=== PATIENT | male | born 1950 | race Caucasian/White ===

== ENCOUNTER → 2021-08-16 | Outpatient (CLI) | payer MEDICARE ==
--- NOTE | 2021-08-16 15:47 | XR ---
EXAMINATION TYPE: XR chest 2V DATE OF EXAM: 08/16/2021 COMPARISON: NONE HISTORY: Cough TECHNIQUE: Frontal and lateral views of the chest are obtained. FINDINGS: There is no pleural effusion, or pneumothorax seen. Right hilum appears asymmetrically pro minent. Patient is rotated. The cardiac silhouette size is within normal limits. Prominent lung volu me with increased retrosternal airspace disease, flattening the hemidiaphragms is consistent with und erlying COPD. The osseous structures are intact. IMPRESSION: Findings may be indicative of a right hilar mass, correlate for COPD. Recommend chest CT .
== END | disposition home or self-care (01) ==
LOC: RADXRMAIN 14:07
PROVIDERS: ATTEND Internal Medicine
DX: R91.8 Other nonspecific abnormal finding of lung field (principal)
CPT/HCPCS: 71046

== ENCOUNTER 2021-08-22 19:08 | Inpatient (IN) | payer MEDICARE ==
[2021-08-22] MEDS ORDERED: ASPIRIN 81 MG PO STA (19:31)
[2021-08-22] MEDS ORDERED: SODIUM CHLORIDE 0.9% 1,000 ML IV STA (19:31)
--- NOTE | 2021-08-22 19:41 | ED ---
General Adult HPI - General Chief complaint: Chest Pain Stated complaint: Chest Pain Time Seen by Provider: 08/22/21 19:15 Source: patient, RN notes reviewed, old records reviewed Mode of arrival: wheelchair - History of Present Illness Initial comments: This is a 71-year-old male who presents emergency Department complaining of chest pain. Patient states she's also mildly short of breath per patient states over the last weeks days he's been feeling weak and coughing quite a bit. Patient states symptoms started 4 weeks ago. Patient states he did get a COVID vaccine 2 but did not get the booster. Patient denies any fever. Patient denies any abdominal pain patient denies nausea vomiting diarrhea. Patient denies lightheadedness or dizziness. Patient denies any lightheadedness dizziness or near syncopal episode. Patient denies any swelling to the legs or calf tenderness. Patient denies any recent trips or travel. Patient states he is a smoker. Patient states he was recently told that he had an abnormality on his chest x-ray. - Related Data Home Medications Medication Instructions Recorded Confirmed Cefuroxime Axetil [Ceftin] 500 mg PO BID 08/22/21 08/22/21 Ergocalciferol [Vitamin D2 (1250 1,250 mcg PO ZEE 08/22/21 08/22/21 Mcg = 20585 Iu)] Allergies Allergy/AdvReac Type Severity Reaction Status Date / Time No Known Allergies Allergy Verified 08/22/21 20:08 Review of Systems ROS Statement: Those systems with pertinent positive or pertinent negative responses have been documented in the HPI. ROS Other: All systems not noted in ROS Statement are negative. Past Medical History Past Medical History: Myocardial Infarction ([place]) History of Any Multi-Drug Resistant Organisms: None Reported Past Surgical History: No Surgical Hx Reported Past Psychological History: No Psychological Hx Reported Smoking Status: Current every day smoker Past Alcohol Use History: Daily Past Drug Use History: None Reported General Exam - General Exam Comments Initial Comments: GENERAL: Patient is well-developed and well-nourished. Patient is nontoxic and well-hyd rated and is in mild distress. ENT: Neck is soft and supple. No significant lymphadenopathy is noted. Oropharynx is clear. Moist mucous membranes. Neck has full range of motion without eliciting any pain. EYES: The sclera were anicteric and conjunctiva were pink and moist. Extraocular movements were intact and pupils were equal round and reactive to light. Eyelids were unremarkable. PULMONARY: Unlabored respirations. Good breath sounds bilaterally. No audible rales rhonchi or wheezing was noted. CARDIOVASCULAR: Patient is tachycardic at about 130 beats a minute. ABDOMEN: Soft and nontender with normal bowel sounds. SKIN: Skin is clear with no lesions or rashes and otherwise unremarkable. NEUROLOGIC: Patient is alert and oriented x3. Cranial nerves II through XII are grossly intact. Motor and sensory are also intact. Normal speech, volume and content. Symmetrical smile. MUSCULOSKELETAL: Normal extremities with adequate strength and full range of motion. No lower extremity swelling or edema. No calf tenderness. LYMPHATICS: No significant lymphadenopathy is noted PSYCHIATRIC: Normal psychiatric evaluation. Course Vital Signs 08/22/21 08/22/21 08/22/21 19:14 19:35 19:44 Temperature 97.6 F Pulse Rate 130 H 128 H Respiratory 23 30 H Rate Blood Pressure 105/68 99/80 O2 Sat by Pulse 97 93 L Oximetry 08/22/21 08/22/21 20:00 20:30 Temperature Pulse Rate 123 H 117 H Respiratory 30 H 28 H Rate Blood Pressure 106/81 124/85 O2 Sat by Pulse 95 98 Oximetry Medical Decision Making - Medical Decision Making EKG shows sinus tachycardia at 130 bpm QRS is 105 Q-T intervals 3-5 QTC is 432. Patient has an occasional PAC. CT chest shows multiple PEs. I started the patient heparin. I spoke with Dr. Brunner he agreed to admit the patient admitted the patient wrote admitting orders. I spoke with Dr. Dockery he agreed to medical management the patient in the ICU. I also started patient on antibiotics because it look like there might be upper lobe pneumonia. I spoke with Dr. Dover and he agreed with the current course of treatment. - Lab Data Result diagrams: 08/22/21 19:45 08/22/21 19:45 Lab Results 08/22/21 08/22/21 08/22/21 Range/Units 19:45 19:45 19:45 WBC 19.9 H (3.8-10.6) k/uL RBC 4.63 (4.30-5.90) m/uL Hgb 15.2 (13.0-17.5) gm/dL Hct 46.6 (39.0-53.0) % MCV 100.6 H (80.0-100.0) fL MCH 32.8 (25.0-35.0) pg MCHC 32.6 (31.0-37.0) g/dL RDW 13.2 (11.5-15.5) % Plt Count 207 (150-450) k/uL MPV 8.3 Neutrophils % 89 % Lymphocytes % 6 % Monocytes % 4 % Eosinophils % 0 % Basophils % 0 % Neutrophils # 17.6 H (1.3-7.7) k/uL Lymphocytes # 1.2 (1.0-4.8) k/uL Monocytes # 0.8 (0-1.0) k/uL Eosinophils # 0.0 (0-0.7) k/uL Basophils # 0.1 (0-0.2) k/uL PT 11.3 (9.0-12.0) sec INR 1.1 (<1.2) APTT 25.1 (22.0-30.0) sec D-Dimer 32.01 H (<0.60) mg/L FEU Sodium 136 L (137-145) mmol/L Potassium 4.1 (3.5-5.1) mmol/L Chloride 102 (98-107) mmol/L Carbon Dioxide 13 L (22-30) mmol/L Anion Gap 21 mmol/L BUN 16 (9-20) mg/dL Creatinine 1.38 H (0.66-1.25) mg/dL Est GFR (CKD-EPI)AfAm 59 (>60 ml/min/1.73 sqM) Est GFR (CKD-EPI)NonAf 51 (>60 ml/min/1.73 sqM) Glucose 302 H (74-99) mg/dL Plasma Lactic Acid Feliciano (0.7-2.0) mmol/L Calcium 9.0 (8.4-10.2) mg/dL Magnesium 1.8 (1.6-2.3) mg/dL Total Bilirubin 1.7 H (0.2-1.3) mg/dL AST 41 (17-59) U/L ALT 28 (4-49) U/L Alkaline Phosphatase 58 (38-126) U/L Troponin I (0.000-0.034) ng/mL Total Protein 7.5 (6.3-8.2) g/dL Albumin 4.5 (3.5-5.0) g/dL Lipase 52 (23-300) U/L Coronavirus (PCR) (Not Detectd) 08/22/21 08/22/21 08/22/21 Range/Units 19:45 19:45 19:45 WBC (3.8-10.6) k/uL RBC (4.30-5.90) m/uL Hgb (13.0-17.5) gm/dL Hct (39.0-53.0) % MCV (80.0-100.0) fL MCH (25.0-35.0) pg MCHC (31.0-37.0) g/dL RDW (11.5-15.5) % Plt Count (150-450) k/uL MPV Neutrophils % % Lymphocytes % % Monocytes % % Eosinophils % % Basophils % % Neutrophils # (1.3-7.7) k/uL Lymphocytes # (1.0-4.8) k/uL Monocytes # (0-1.0) k/uL Eosinophils # (0-0.7) k/uL Basophils # (0-0.2) k/uL PT (9.0-12.0) sec INR (<1.2) APTT (22.0-30.0) sec D-Dimer (<0.60) mg/L FEU Sodium (137-145) mmol/L Potassium (3.5-5.1) mmol/L Chloride (98-107) mmol/L Carbon Dioxide (22-30) mmol/L Anion Gap mmol/L BUN (9-20) mg/dL Creatinine (0.66-1.25) mg/dL Est GFR (CKD-EPI)AfAm (>60 ml/min/1.73 sqM) Est GFR (CKD-EPI)NonAf (>60 ml/min/1.73 sqM) Glucose (74-99) mg/dL Plasma Lactic Acid Feliciano 9.2 H* (0.7-2.0) mmol/L Calcium (8.4-10.2) mg/dL Magnesium (1.6-2.3) mg/dL Total Bilirubin (0.2-1.3) mg/dL AST (17-59) U/L ALT (4-49) U/L Alkaline Phosphatase (38-126) U/L Troponin I 0.419 H* (0.000-0.034) ng/mL Total Protein (6.3-8.2) g/dL Albumin (3.5-5.0) g/dL Lipase (23-300) U/L Coronavirus (PCR) Not Detected (Not Detectd) Critical Care Time Critical Care Time: Yes Total Critical Care Time: 35 Disposition Clinical Impression: Pulmonary embolism Disposition: ADMITTED IP TO THIS [facility] Time of Disposition: 21:09
[2021-08-22 20:16] LABS: Basophils # (A) 0.1 k/uL (0-0.2); Basophils % (A) 0 %; Eosinophils % (A) 0 %; HCT 46.6 % (39.0-53.0); HGB 15.2 gm/dL (13.0-17.5); Lymphocytes # (A) 1.2 k/uL (1.0-4.8); Lymphocytes % (A) 6 %; MCH 32.8 pg (25.0-35.0); MCHC 32.6 g/dL (31.0-37.0); MCV 100.6 fL (80.0-100.0); Mean Platelet Volume 8.3; Monocytes # (A) 0.8 k/uL (0-1.0); Monocytes % (A) 4 %; Neutrophils # (A) 17.6 k/uL (1.3-7.7); Neutrophils % (A) 89 %; Platelet Count 207 k/uL (150-450); RBC 4.63 m/uL (4.30-5.90); RDW 13.2 % (11.5-15.5); WBC 19.9 k/uL (3.8-10.6)
[2021-08-22 20:17] LABS: Albumin 4.5 g/dL (3.5-5.0); Magnesium 1.8 mg/dL (1.6-2.3); Potassium 4.1 mmol/L (3.5-5.1); Total Bilirubin 1.7 mg/dL (0.2-1.3); Total Protein 7.5 g/dL (6.3-8.2)
[2021-08-22 20:23] LABS: INR 1.1 (<1.2); Partial Thromboplastin Time 25.1 sec (22.0-30.0); Prothrombin Time 11.3 sec (9.0-12.0)
--- NOTE | 2021-08-22 20:26 | XR ---
EXAMINATION TYPE: XR chest 2V DATE OF EXAM: 08/22/2021 7:54 PM COMPARISON:Chest radiographs from 08/16/2021 TECHNIQUE: XR chest 2V Frontal and lateral views of the chest. CLINICAL INDICATION:Male, 71 years old with history of Chest Pain; FINDINGS: Lungs/Pleura: There is no evidence of pleural effusion, focal consolidation, or pneumothorax. Pulmonary vascularity: Unremarkable. Heart/mediastinum: Cardiomediastinal silhouette is unremarkable. Musculoskeletal: No acute osseous pathology. IMPRESSION: No acute cardiopulmonary disease/process or significant change from prior..
[2021-08-22] MEDS ORDERED: cefTRIAXone IN SWFI 1,000 MG/10 ML SYRINGE IVP STA (20:36)
[2021-08-22] MEDS ORDERED: SODIUM CHLORIDE 0.9% 1,000 ML IV ONE (20:36)
[2021-08-22] MEDS ORDERED: SODIUM CHLORIDE 0.9% 500 ML 500 ML IV ONE (20:36)
[2021-08-22] MEDS ORDERED: HEPARIN SODIUM 1,000 UN/ML (10ML VL) IV ONE (21:02)
[2021-08-22] MEDS ORDERED: NALOXONE 0.4 MG/ML 1 ML VIAL IV PRN (21:11)
[2021-08-22] MEDS: HEPARIN SOD,PORK IN 0.45% NACL 25,000 UNIT in 0.45% NACL 1 250ML.BAG IV SCH (21:22)
--- NOTE | 2021-08-22 21:26 | CT ---
EXAMINATION TYPE: CT chest angio for PE CT DLP: 234.4 mGycm, Automated exposure control for dose reduction was used. DATE OF EXAM: 08/22/2021 9:00 PM COMPARISON:Chest radiograph from same day. CLINICAL INDICATION:Male, 71 years old with history of Pulmonary embolism; SOB TECHNIQUE/CONTRAST: CTA scan of the thorax is performed with IV Contrast, patient injected with 80 mL of Isovue 370, pulm onary embolism protocol. MIP images are created and reviewed. FINDINGS: Pulmonary Artery: There is a filling defects within the pulmonary arterial vasculature including sagi ttal pulmonary embolus at the bifurcation of the pulmonary trunk. Additional filling defects with ext ension into the bilateral lobar, segmental and subsegmental branches. The pulmonary trunk is within n ormal limits measuring 27 mm. There is flattening of the interventricular septum. Lungs/Pleura: Centrilobular emphysema changes with some consolidation in the lung apices likely repre senting scarring. Wedge-shaped opacity within the right lower lobe could represent early pulmonary in farct. No evidence of pneumothorax or pleural effusion. Airway: Large airways are patent. Heart: Within normal limits for size. Vasculature: No evidence of aortic aneurysm. Reflux of contrast into the the inferior vena cava. Mediastinum: No gross evidence of adenopathy. Musculoskeletal: No acute osseous abnormalities Soft Tissues: Unremarkable. Lower neck: No significant findings. Upper Abdomen: No significant findings. Findings communicated to Dr. Atul Dye MD on 08/22/2021 9:[address] Gilson Aguirre. IMPRESSION: 1. Sagittal pulmonary embolus with extension to the bilateral segmental and subsegmental branches of all the lung lobes. There is flattening of the interventricular septum with reflux of contrast into t he IVC consistent with right heart strain correlate with troponin. 2. Wedge-shaped area within the right lower lobe is represent a pulmonary infarct enlarged. 3. Emphysema changes with suspected scarring within the lung apices.
[2021-08-23 08:10] LABS: Glucose,Whole Blood 93 mg/dL (75-99)
--- NOTE | 2021-08-23 08:34 | P.GSCN ---
History of Present Illness Consult date: 08/23/21 Reason for Consult: Pulmonary embolism History of present illness: This is a pleasant 71-year-old male with a past medical history of coronary artery disease, current every day smoker, presented to the emergency department yesterday with complaints of shortness of breath. Apparently the patient had been experiencing shortness of breath with cough, congestion and weakness for the last 1 month duration. He has been cold attested which has been negative in the past and currently. The patient had elevated d-dimer as well as troponins on admission. He had a CT angiogram of the chest that showed sagittal pulmonary embolism with extension to bilateral segmental and subsegmental branches of all the lung lobes, with right heart strain. Saturation has been 97 200% with 3 L nasal cannula. He states he does have shortness of breath at rest increased with exertion. He currently denies any cough, fever, or chills. Denies any chest pain. He has no previous history of DVT or pulmonary embolism. He has had no recent surgery, no transplant, has been more sedentary due to the above symptoms. He does report that he has a son with history of blood clots and believes he does have a clotting disorder. He is currently on IV heparin drip. Review of Systems A 14 point review of systems has been completed all pertinent positives and negatives as stated in the HPI. Past Medical History Past Medical History: Myocardial Infarction ([place]) History of Any Multi-Drug Resistant Organisms: None Reported Past Surgical History: No Surgical Hx Reported Past Psychological History: No Psychological Hx Reported Smoking Status: Current every day smoker Past Alcohol Use History: Daily Past Drug Use History: None Reported - Past Family History Father Additional Family Medical History / Comment(s): "Bad back" Mother Family Medical History: Cancer Medications and Allergies Home Medications Medication Instructions Recorded Confirmed Type Cefuroxime Axetil [Ceftin] 500 mg PO BID 08/22/21 08/22/21 History Ergocalciferol [Vitamin D2 (1250 1,250 mcg PO ZEE 08/22/21 08/22/21 History Mcg = 29130 Iu)] Allergies Allergy/AdvReac Type Severity Reaction Status Date / Time No Known Allergies Allergy Verified 08/22/21 20:08 Surgical - Exam Vital Signs Pulse Resp BP Pulse Ox 130 H 23 105/68 97 08/22/21 19:14 08/22/21 19:14 08/22/21 19:14 08/22/21 19:14 General appearance: The patient is alert, oriented, appears in no acute distress. HET: Head is normocephalic and atraumatic. Neck: Supple without lymphadenopathy. Trachea midline. No audible carotid bruit. Heart: S1 S2. Regular rate and rhythm. Lungs: Clear to auscultation bilaterally. Abdomen: Soft, nontender, nondistended. Extremities: Normal skin color and turgor. No cyanosis, rash, ulceration, clubbing, or edema. Radial pulses +2 bilaterally. Non-palpable dorsalis pedis pulse. Neurological: No focal deficits. Alert and oriented 3. Results - Labs 08/22/21 19:45 08/22/21 19:45 Abnormal Lab Results - Last 24 Hours (Table) 08/22/21 08/22/21 08/22/21 Range/Units 19:45 19:45 19:45 WBC 19.9 H (3.8-10.6) k/uL MCV 100.6 H (80.0-100.0) fL Neutrophils # 17.6 H (1.3-7.7) k/uL APTT (22.0-30.0) sec D-Dimer 32.01 H (<0.60) mg/L FEU Sodium 136 L (137-145) mmol/L Carbon Dioxide 13 L (22-30) mmol/L Creatinine 1.38 H (0.66-1.25) mg/dL Glucose 302 H (74-99) mg/dL Plasma Lactic Acid Feliciano (0.7-2.0) mmol/L Total Bilirubin 1.7 H (0.2-1.3) mg/dL Troponin I (0.000-0.034) ng/mL 08/22/21 08/22/21 08/22/21 Range/Units 19:45 19:45 22:43 WBC (3.8-10.6) k/uL MCV (80.0-100.0) fL Neutrophils # (1.3-7.7) k/uL APTT (22.0-30.0) sec D-Dimer (<0.60) mg/L FEU Sodium (137-145) mmol/L Carbon Dioxide (22-30) mmol/L Creatinine (0.66-1.25) mg/dL Glucose (74-99) mg/dL Plasma Lactic Acid Feliciano 9.2 H* 6.0 H* (0.7-2.0) mmol/L Total Bilirubin (0.2-1.3) mg/dL Troponin I 0.419 H* (0.000-0.034) ng/mL 08/23/21 08/23/21 08/23/21 Range/Units 02:00 03:56 05:08 WBC (3.8-10.6) k/uL MCV (80.0-100.0) fL Neutrophils # (1.3-7.7) k/uL APTT 106.2 H* (22.0-30.0) sec D-Dimer (<0.60) mg/L FEU Sodium (137-145) mmol/L Carbon Dioxide (22-30) mmol/L Creatinine (0.66-1.25) mg/dL Glucose (74-99) mg/dL Plasma Lactic Acid Feliciano 4.3 H* 2.3 H* (0.7-2.0) mmol/L Total Bilirubin (0.2-1.3) mg/dL Troponin I (0.000-0.034) ng/mL 08/23/21 Range/Units 05:14 WBC (3.8-10.6) k/uL MCV (80.0-100.0) fL Neutrophils # (1.3-7.7) k/uL APTT (22.0-30.0) sec D-Dimer (<0.60) mg/L FEU Sodium (137-145) mmol/L Carbon Dioxide (22-30) mmol/L Creatinine (0.66-1.25) mg/dL Glucose (74-99) mg/dL Plasma Lactic Acid Feliciano (0.7-2.0) mmol/L Total Bilirubin (0.2-1.3) mg/dL Troponin I 0.366 H* (0.000-0.034) ng/mL Diabetes panel 08/22/21 Range/Units 19:45 Sodium 136 L (137-145) mmol/L Potassium 4.1 (3.5-5.1) mmol/L Chloride 102 (98-107) mmol/L Carbon Dioxide 13 L (22-30) mmol/L BUN 16 (9-20) mg/dL Creatinine 1.38 H (0.66-1.25) mg/dL Glucose 302 H (74-99) mg/dL Calcium 9.0 (8.4-10.2) mg/dL AST 41 (17-59) U/L ALT 28 (4-49) U/L Alkaline Phosphatase 58 (38-126) U/L Total Protein 7.5 (6.3-8.2) g/dL Albumin 4.5 (3.5-5.0) g/dL Calcium panel 08/22/21 Range/Units 19:45 Calcium 9.0 (8.4-10.2) mg/dL Albumin 4.5 (3.5-5.0) g/dL Pituitary panel 08/22/21 Range/Units 19:45 Sodium 136 L (137-145) mmol/L Potassium 4.1 (3.5-5.1) mmol/L Chloride 102 (98-107) mmol/L Carbon Dioxide 13 L (22-30) mmol/L BUN 16 (9-20) mg/dL Creatinine 1.38 H (0.66-1.25) mg/dL Glucose 302 H (74-99) mg/dL Calcium 9.0 (8.4-10.2) mg/dL Adrenal panel 08/22/21 Range/Units 19:45 Sodium 136 L (137-145) mmol/L Potassium 4.1 (3.5-5.1) mmol/L Chloride 102 (98-107) mmol/L Carbon Dioxide 13 L (22-30) mmol/L BUN 16 (9-20) mg/dL Creatinine 1.38 H (0.66-1.25) mg/dL Glucose 302 H (74-99) mg/dL Calcium 9.0 (8.4-10.2) mg/dL Total Bilirubin 1.7 H (0.2-1.3) mg/dL AST 41 (17-59) U/L ALT 28 (4-49) U/L Alkaline Phosphatase 58 (38-126) U/L Total Protein 7.5 (6.3-8.2) g/dL Albumin 4.5 (3.5-5.0) g/dL - Imaging Comments: CT angiogram chest reports sagittal pulmonary embolism with extension to bilateral segmental and subsegmental branches of all the lung lobes. There is flattening of the interventricular septum with reflux of contrast into IVC consistent with right heart strain correlate with troponin. Wedge-shaped area within the right lower lobe is present a pulmonary infarct enlarged. Emphysema changes with suspected scarring within the lung apices. Venous Doppler study reports findings are suggestive of nonoccluding DVT bilateral lower extremity and the superficial femoral vein Assessment and Plan Assessment: 1. Bilateral pulmonary emboli with likely right heart strain 2. Elevated troponins 3. History of coronary artery disease 4. Current smoker Plan: 1. Continue IV heparin drip 2. Echocardiogram ordered 3. Venous duplex ordered 4. Keep nothing by mouth 5. Smoking cessation 6. Hematology consulted, patient's son has history of blood clots with possible clotting disorder 7. Patient is scheduled for [facility] today The impression and plan of care has been dictated as directed. Dr. Dover I performed a history and examination of this patient, discussed the same with the dictator. I agree with the dictator's note ,documented as a scribe. Any additional findings or plans will be noted.
--- NOTE | 2021-08-23 09:33 | US ---
EXAMINATION TYPE: US venous doppler duplex LE BI DATE OF EXAM: 08/23/2021 7:50 AM COMPARISON: CT CLINICAL HISTORY: PE, assess for DVT. SIDE PERFORMED: Bilateral TECHNIQUE: The lower extremity deep venous system is examined utilizing real time linear array sonog anny with graded compression, doppler sonography and color-flow sonography. VESSELS IMAGED: Common Femoral Vein Deep Femoral Vein Greater Saphenous Vein * Femoral Vein Popliteal Vein Small Saphenous Vein * Proximal Calf Veins (* superficial vessels) Right Leg: Non occluding DVT is noted upper Femoral Vein Valves and mid Femoral Vein on image # [id number] . Left Leg: Wall echoes noted at upper and mid Femoral Vein valves and may suggest non occluding DVT. IMPRESSION: 1. Findings are suggestive of nonoccluding DVT bilateral lower extremity superficial femoral vein.
--- NOTE | 2021-08-23 11:51 | P.CNPUL ---
History of Present Illness Consult date: 08/23/21 Requesting physician: Robel Brunner Reason for consult: pulmonary embolism Chief complaint: Shortness of breath History of present illness: This is a 71-year-old white male with history of coronary artery disease, previous stent placement, history of underlying COPD, tobacco dependence syndrome, strong family history of thromboembolic disease, patient presented to the hospital with one month history of shortness of breath, vague chest pain across the chest anteriorly. Patient was found to have elevated d-dimer, and abnormal CT angiogram of the chest showing large sagittal pulmonary embolism with extension to segmental and subsegmental branches bilaterally, and there was evidence of right heart strain. Echocardiogram is pending. Patient was admitted to the ICU, and he is being considered for EKOS thrombolytic therapy by vascular surgery. In the meantime the patient is on heparin, he is also on 3 L nasal cannula with O2 saturation of 95%. Patient is hemodynamically stable, blood pressure is 97/44. And does not seem to be in any distress during my evaluation. Venous Doppler of the legs showed nonocclusive DVT bilaterally Patient had no previous history of DVT, or ulnar embolism, however his son had deep vein thromboses and pulmonary embolism at age 39 and he was diagnosed as having factor V Leyden mutation Review of Systems Constitutional: Weakness, no fever, no chills, no weight loss. HEENT: Negative. Pulmonary: As noted in HPI. Cardiac: Negative. History of coronary artery disease and previous stents placement. GI: Negative. Genitourinary: Negative. Musko skeletal: Negative. Skin: Negative. Neurologic: Negative. Endocrine: Negative. Hematologic: Negative. Psychiatric: Negative. Past Medical History Past Medical History: Myocardial Infarction ([place]) Additional Past Medical History / Comment(s): R eye glaucoma, occasional low back pain. Last Myocardial Infarction Date:: 2004 History of Any Multi-Drug Resistant Organisms: None Reported Past Surgical History: No Surgical Hx Reported Additional Past Surgical History / Comment(s): 2004 cardiac cath/pt does not believe he had any intervention, colonoscopy/polyp removed/benign. Past Anesthesia/Blood Transfusion Reactions: Unable to Obtain Additional Past Anesthesia/Blood Transfusion Reaction / Comment(s): Pt has never had general anesthesia. Past Psychological History: No Psychological Hx Reported Smoking Status: Current every day smoker Past Alcohol Use History: Daily Past Drug Use History: None Reported - Past Family History Father Additional Family Medical History / Comment(s): "Bad back" Mother Family Medical History: Cancer Medications and Allergies Home Medications Medication Instructions Recorded Confirmed Type Cefuroxime Axetil [Ceftin] 500 mg PO BID 08/22/21 08/22/21 History Ergocalciferol [Vitamin D2 (1250 1,250 mcg PO ZEE 08/22/21 08/22/21 History Mcg = 94326 Iu)] Allergies Allergy/AdvReac Type Severity Reaction Status Date / Time No Known Allergies Allergy Verified 08/22/21 20:08 Physical Exam Vitals: Vital Signs Temp Pulse Resp BP Pulse Ox 08/23/21 11:33 23 08/23/21 11:00 104 H 23 98/73 98 08/23/21 10:30 102 H 13 98/73 97 08/23/21 10:00 103 H 25 H 97/74 08/23/21 09:30 106 H 20 97/74 95 08/23/21 09:00 98.0 F 110 H 19 92/75 95 08/23/21 08:30 108 H 24 92/75 95 08/23/21 08:00 96/72 08/23/21 07:30 107 H 20 94/77 98 08/23/21 07:00 105 H 10 L 105/77 100 08/23/21 06:30 106 H 26 H 83/68 100 08/23/21 06:00 101 H 14 87/71 100 08/23/21 05:00 104 H 14 87/59 99 08/23/21 04:00 106 H 27 H 86/69 100 08/23/21 03:30 103 H 18 86/69 100 08/23/21 03:00 101 H 16 96/73 100 08/23/21 02:30 107 H 21 96/73 99 08/23/21 02:00 113 H 19 89/68 98 08/23/21 01:30 98 22 87/67 100 08/23/21 01:00 101 H 14 95/70 100 08/23/21 00:30 105 H 20 90/60 99 08/23/21 00:00 105 H 24 92/67 100 08/22/21 23:30 106 H 25 H 104/78 97 08/22/21 23:00 106 H 16 115/73 97 08/22/21 22:30 110 H 21 133/88 99 08/22/21 22:00 111 H 26 H 121/91 99 08/22/21 21:30 113 H 25 H 119/77 100 08/22/21 21:00 112 H 22 124/85 94 L 08/22/21 20:50 124/85 08/22/21 20:30 117 H 28 H 124/85 98 08/22/21 20:00 123 H 30 H 106/81 95 08/22/21 19:44 128 H 30 H 99/80 93 L 08/22/21 19:35 97.6 F 08/22/21 19:14 130 H 23 105/68 97 Intake and Output 08/22/21 08/23/21 08/23/21 22:59 06:59 14:59 Intake Total 83.674 0 Output Total 0 Balance 83.674 0 Intake: Intake, IV Titration 83.674 Amount Heparin Sod,Pork in 0.45% 83.674 NaCl 25,000 unit In 0.45 % NaCl 1 250ml.bag @ 18 UNITS/KG/HR 10.614 mls/hr IV .[id number] [facility] Rx#: [id number] Oral 0 Output: Urine 0 Other: Voiding Method Urinal # Voids 1 Weight 58.967 kg 58.967 kg Physical Exam: Revealed 71-year-old white male in no distress. Head: Atraumatic, normocephalic. HEENT:[Neck is supple.] [No neck masses.] [No thyromegaly.] [No JVD.] Chest: [Clear throughout, no crackles, no rhonchi, no wheezes.] Cardiac Exam: [Normal S1 and S2, no S3 gallop, no murmur.] Abdomen: [Soft, nontender, no megaly, no rebound, no guarding, normal bowel sounds.] Extremities: [No clubbing, no edema, no cyanosis.] Neurological Exam: [No focal neurologic deficit.] Alert oriented 3 focal deficits. Psychiatric: Normal mood affect and normal mental status examination. Skin: No rashes. Musculoskeletal: No deformities and no limitation in range of motion. Results - Laboratory Findings CBC and BMP: 08/22/21 19:45 08/22/21 19:45 PT/INR, D-dimer PT 11.3 sec (9.0-12.0) 08/22/21 19:45 INR 1.1 (<1.2) 08/22/21 19:45 D-Dimer 32.01 mg/L FEU (<0.60) H 08/22/21 19:45 Abnormal lab findings: Abnormal Labs 08/22/21 08/22/21 08/22/21 19:45 19:45 19:45 WBC 19.9 H MCV 100.6 H Neutrophils # 17.6 H APTT D-Dimer 32.01 H Sodium 136 L Carbon Dioxide 13 L Creatinine 1.38 H Glucose 302 H Plasma Lactic Acid Feliciano Total Bilirubin 1.7 H Troponin I 08/22/21 08/22/21 08/22/21 19:45 19:45 22:43 WBC MCV Neutrophils # APTT D-Dimer Sodium Carbon Dioxide Creatinine Glucose Plasma Lactic Acid Feliciano 9.2 H* 6.0 H* Total Bilirubin Troponin I 0.419 H* 08/23/21 08/23/21 08/23/21 02:00 03:56 05:08 WBC MCV Neutrophils # APTT 106.2 H* D-Dimer Sodium Carbon Dioxide Creatinine Glucose Plasma Lactic Acid Feliciano 4.3 H* 2.3 H* Total Bilirubin Troponin I 08/23/21 08/23/21 08/23/21 05:14 08:38 08:38 WBC MCV Neutrophils # APTT D-Dimer Sodium Carbon Dioxide Creatinine Glucose Plasma Lactic Acid Feliciano 2.7 H* Total Bilirubin Troponin I 0.366 H* 0.292 H* - Diagnostic Findings CT scan - chest: image reviewed (Sagittal pulmonary embolism as noted in HPI. There is also evidence of right lower lobe infarction. 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 Resume home meds. Continue heparin for now. Discontinue Rocephin, clinical history is not suggestive of pneumonia. Continue to monitor in the ICU for the next 24 hours. We'll continue to follow. Time with Patient: Greater than 30
[2021-08-23 12:42] LABS: Basophils % (A) 0 %; Eosinophils % (A) 0 %; HCT 39.8 % (39.0-53.0); HGB 12.9 gm/dL (13.0-17.5); Hypochromasia Slight; Lymphocytes # (A) 1.2 k/uL (1.0-4.8); Lymphocytes % (A) 11 %; MCH 32.9 pg (25.0-35.0); MCHC 32.4 g/dL (31.0-37.0); MCV 101.7 fL (80.0-100.0); Macrocytosis Slight; Mean Platelet Volume 10.7; Monocytes # (A) 0.7 k/uL (0-1.0); Monocytes % (A) 6 %; Neutrophils # (A) 8.8 k/uL (1.3-7.7); Neutrophils % (A) 81 %; Platelet Count 156 k/uL (150-450); RBC 3.92 m/uL (4.30-5.90); RDW 13.3 % (11.5-15.5)
[2021-08-23 12:58] LABS: Albumin 3.6 g/dL (3.5-5.0); Calcium 8.2 mg/dL (8.4-10.2); Potassium 4.8 mmol/L (3.5-5.1); Total Bilirubin 0.7 mg/dL (0.2-1.3); Total Protein 6.4 g/dL (6.3-8.2)
--- NOTE | 2021-08-23 14:12 | P.CONS ---
History of Present Illness - Reason for Consult Consult date: 08/23/21 Hypercoagulable Requesting physician: Mariangel Angel - History of Present Illness Patient presents with shortness of breath. CT angiogram of the chest showing large sagittal pulmonary embolism with extension to segmental and subsegmental branches bilaterally, and there was evidence of right heart strain. Venous doppler showed RLE DVT, and probable non occlusive LLE. Heparin drip currently infusing. Patient in care of ICU, son at bedside during evaluation. Denies recent covid infection. Son has known hypercoagulable inherited trait, which they believe is Factor V. Review of Systems All systems: negative Constitutional: Reports as per HPI Past Medical History Past Medical History: Myocardial Infarction ([place]) Additional Past Medical History / Comment(s): R eye glaucoma, occasional low back pain. Last Myocardial Infarction Date:: 2004 History of Any Multi-Drug Resistant Organisms: None Reported Past Surgical History: No Surgical Hx Reported Additional Past Surgical History / Comment(s): 2004 cardiac cath/pt does not believe he had any intervention, colonoscopy/polyp removed/benign. Past Anesthesia/Blood Transfusion Reactions: Unable to Obtain Additional Past Anesthesia/Blood Transfusion Reaction / Comm: Pt has never had general anesthesia. Past Psychological History: No Psychological Hx Reported Smoking Status: Current every day smoker Past Alcohol Use History: Daily Past Drug Use History: None Reported - Past Family History Father Additional Family Medical History / Comment(s): "Bad back" Mother Family Medical History: Cancer Medications and Allergies Home Medications Medication Instructions Recorded Confirmed Type Cefuroxime Axetil [Ceftin] 500 mg PO BID 08/22/21 08/22/21 History Ergocalciferol [Vitamin D2 (1250 1,250 mcg PO ZEE 08/22/21 08/22/21 History Mcg = 40300 Iu)] Allergies Allergy/AdvReac Type Severity Reaction Status Date / Time No Known Allergies Allergy Verified 08/22/21 20:08 Physical Exam Vitals: Vital Signs Temp Pulse Resp BP Pulse Ox 08/23/21 11:33 23 08/23/21 11:00 104 H 23 98/73 98 08/23/21 10:30 102 H 13 98/73 97 08/23/21 10:00 103 H 25 H 97/74 08/23/21 09:30 106 H 20 97/74 95 08/23/21 09:00 98.0 F 110 H 19 92/75 95 08/23/21 08:30 108 H 24 92/75 95 08/23/21 08:00 96/72 08/23/21 07:30 107 H 20 94/77 98 08/23/21 07:00 105 H 10 L 105/77 100 08/23/21 06:30 106 H 26 H 83/68 100 08/23/21 06:00 101 H 14 87/71 100 08/23/21 05:00 104 H 14 87/59 99 08/23/21 04:00 106 H 27 H 86/69 100 08/23/21 03:30 103 H 18 86/69 100 08/23/21 03:00 101 H 16 96/73 100 08/23/21 02:30 107 H 21 96/73 99 08/23/21 02:00 113 H 19 89/68 98 08/23/21 01:30 98 22 87/67 100 08/23/21 01:00 101 H 14 95/70 100 08/23/21 00:30 105 H 20 90/60 99 08/23/21 00:00 105 H 24 92/67 100 08/22/21 23:30 106 H 25 H 104/78 97 08/22/21 23:00 106 H 16 115/73 97 08/22/21 22:30 110 H 21 133/88 99 08/22/21 22:00 111 H 26 H 121/91 99 08/22/21 21:30 113 H 25 H 119/77 100 08/22/21 21:00 112 H 22 124/85 94 L 08/22/21 20:50 124/85 08/22/21 20:30 117 H 28 H 124/85 98 08/22/21 20:00 123 H 30 H 106/81 95 08/22/21 19:44 128 H 30 H 99/80 93 L 08/22/21 19:35 97.6 F 08/22/21 19:14 130 H 23 105/68 97 Intake and Output 08/22/21 08/23/21 08/23/21 22:59 06:59 14:59 Intake Total 83.674 0 Output Total 0 Balance 83.674 0 Intake: Intake, IV Titration 83.674 Amount Heparin Sod,Pork in 0.45% 83.674 NaCl 25,000 unit In 0.45 % NaCl 1 250ml.bag @ 18 UNITS/KG/HR 10.614 mls/hr IV .[id number] [facility] Rx#: [id number] Oral 0 Output: Urine 0 Other: Voiding Method Urinal # Voids 1 Weight 58.967 kg 58.967 kg Alert and Oriented NAD Lungs: Diminshed no increased effort Abdomen: S/ND Heart tachy RLE Edema>L Calm Results CBC & Chem 7: 08/23/21 08:38 08/23/21 08:38 Labs: Abnormal Lab Results - Last 24 Hours (Table) 08/22/21 08/22/21 08/22/21 Range/Units 19:45 19:45 19:45 WBC 19.9 H (3.8-10.6) k/uL MCV 100.6 H (80.0-100.0) fL Neutrophils # 17.6 H (1.3-7.7) k/uL APTT (22.0-30.0) sec D-Dimer 32.01 H (<0.60) mg/L FEU Sodium 136 L (137-145) mmol/L Carbon Dioxide 13 L (22-30) mmol/L Creatinine 1.38 H (0.66-1.25) mg/dL Glucose 302 H (74-99) mg/dL Plasma Lactic Acid Feliciano (0.7-2.0) mmol/L Total Bilirubin 1.7 H (0.2-1.3) mg/dL Troponin I (0.000-0.034) ng/mL 08/22/21 08/22/21 08/22/21 Range/Units 19:45 19:45 22:43 WBC (3.8-10.6) k/uL MCV (80.0-100.0) fL Neutrophils # (1.3-7.7) k/uL APTT (22.0-30.0) sec D-Dimer (<0.60) mg/L FEU Sodium (137-145) mmol/L Carbon Dioxide (22-30) mmol/L Creatinine (0.66-1.25) mg/dL Glucose (74-99) mg/dL Plasma Lactic Acid Feliciano 9.2 H* 6.0 H* (0.7-2.0) mmol/L Total Bilirubin (0.2-1.3) mg/dL Troponin I 0.419 H* (0.000-0.034) ng/mL 08/23/21 08/23/21 08/23/21 Range/Units 02:00 03:56 05:08 WBC (3.8-10.6) k/uL MCV (80.0-100.0) fL Neutrophils # (1.3-7.7) k/uL APTT 106.2 H* (22.0-30.0) sec D-Dimer (<0.60) mg/L FEU Sodium (137-145) mmol/L Carbon Dioxide (22-30) mmol/L Creatinine (0.66-1.25) mg/dL Glucose (74-99) mg/dL Plasma Lactic Acid Feliciano 4.3 H* 2.3 H* (0.7-2.0) mmol/L Total Bilirubin (0.2-1.3) mg/dL Troponin I (0.000-0.034) ng/mL 08/23/21 08/23/21 08/23/21 Range/Units 05:14 08:38 08:38 WBC (3.8-10.6) k/uL MCV (80.0-100.0) fL Neutrophils # (1.3-7.7) k/uL APTT (22.0-30.0) sec D-Dimer (<0.60) mg/L FEU Sodium (137-145) mmol/L Carbon Dioxide (22-30) mmol/L Creatinine (0.66-1.25) mg/dL Glucose (74-99) mg/dL Plasma Lactic Acid Feliciano 2.7 H* (0.7-2.0) mmol/L Total Bilirubin (0.2-1.3) mg/dL Troponin I 0.366 H* 0.292 H* (0.000-0.034) ng/mL CT scan - chest: report reviewed Venous US: report reviewed Assessment and Plan (1) Pulmonary embolism Narrative/Plan: Contiinue heparin drip until completion of any interventions needed then convert to PO will order full hypercoagulable work-up as outpatient when seen for follow-up visit in 3-5 weeks Known family history of hypercoagulable risk traits. Current Visit: Yes Status: Acute Code(s): I26.99 - OTHER PULMONARY EMBOLISM WITHOUT ACUTE COR PULMONALE SNOMED Code(s): 54990486 Plan: Assessment and Recommendations: Right Lower Extremity DVT New Acute Pulmonary Embolism Dr. Rosenberg: I have performed the complete history and physical and developed the above impression and plan, agree with dictation, dictated as a scribe
[2021-08-23] MEDS ORDERED: ALTEPLASE 10 MG in SODIUM CHLORIDE 0.9% 90 ML IV ONE ×4 (16:29)
[2021-08-23] MEDS ORDERED: SODIUM CHLORIDE 0.9% 1,000 ML IV SCH ×2 (16:30)
[2021-08-23] MEDS ORDERED: HEPARIN SOD,PORK IN 0.45% NACL 25,000 UNIT in 0.45% NACL 1 250ML.BAG IV SCH ×2 (16:30)
[2021-08-23] MEDS ORDERED: ALTEPLASE 2 MG VIAL (CATHFLO) IV STA (16:45)
[2021-08-23] MEDS ORDERED: LIDOCAINE 1% INJ 10MG/ML (20 ML MDV) ONE (17:25)
[2021-08-23] MEDS ORDERED: MIDAZOLAM 2 MG/2 ML VIAL IV ONE (17:25)
[2021-08-23] MEDS ORDERED: LIDOCAINE 1% INJ 10MG/ML (20 ML MDV) SQ ONE (17:27)
[2021-08-23] MEDS ORDERED: SODIUM CHLORIDE 0.9% 250 ML IV ONE (17:56)
[2021-08-23] MEDS ORDERED: IOPAMIDOL-370 50ML BTL INJ ONE (17:59)
--- NOTE | 2021-08-23 18:06 | P.OP ---
Date of Procedure: 08/23/21 Description of Procedure: Preoperative diagnosis: Bilateral Pulmonary artery embolus with right heart strain Postoperative diagnosis: Same Procedure: Ultrasound-guided right femoral vein access with placement of bilateral thrombolytic EKOS catheters and initiation of thrombolysis, bilateral selective pulmonary artery angiogram. Surgeon: Waldo Dover D.O. Anesthesia: Local with conscious sedation x 30 minutes Estimated blood loss: Minimal Complications: None Condition: Stable Indication for procedure: 71-year-old gentleman presented to the emergency department secondary to shortness of breath which she states has been off and on for approximately 1 month. He was diagnosed with bilateral PE with right heart strain with elevated troponin upon admission. He is admitted to the ICU and scheduled for thrombolysis of bilateral pulmonary emboli. Operative narrative: After written and informed consent was obtained from the patient and all risk, benefits and complications were discussed the patient was brought to the [facility] and laid in a supine position. The area of the right groin was prepped and draped in usual sterile fashion. Timeout was performed in normal fashion. Under ultrasound guidance the right common femoral vein was accessed 2 and 6-Uzbek sheaths were placed utilizing Seldinger technique. 035 Glidewire advantage was then placed and directed to the inferior vena cava and atrial junction. Utilizing an angled glide catheter the atria was accessed and wire was placed into the right ventricle and ultimately up to the pulmonary artery. Right pulmonary angiogram was obtained demonstrating thrombus within the middle branch of the pulmonary artery. The pulmonary artery on the right was accessed and wire was placed into the segmental branch with removal of the angled glide catheter. Through the other sheath and 035 Glidewire advantage was placed and utilizing the angled glide catheter the left pulmonary artery was accessed and angiogram was obtained demonstrating thrombus within the inferior pulmonary angiogram branch. Wire was placed into the segmental branch and catheter was removed. The EKOS infusion catheters were then guided over the guidewires into the appropriate position across the pulmonary arteries bilaterally. Wires were then removed and replaced with the ultrasound inner core wire. 2 mg of TPA was then infused into both infusion ports. The sheaths were then secured in place with nylon suture. The area was then cleansed and dressings were placed. The patient was then connected to TPA and heparin as well as coolant per protocol. Patient tolerated procedure well and was sent to the ICU for recovery.
[2021-08-23] MEDS ORDERED: MORPHINE SULFATE 2 MG/ML SYRINGE IVP PRN (18:09)
[2021-08-23 19:12] LABS: Basophils # (A) 0.1 k/uL (0-0.2); Basophils % (A) 1 %; Eosinophils % (A) 0 %; HCT 38.2 % (39.0-53.0); HGB 12.6 gm/dL (13.0-17.5); Lymphocytes # (A) 1.7 k/uL (1.0-4.8); Lymphocytes % (A) 17 %; MCH 32.8 pg (25.0-35.0); MCHC 33.1 g/dL (31.0-37.0); MCV 99.1 fL (80.0-100.0); Mean Platelet Volume 8.8; Monocytes # (A) 0.5 k/uL (0-1.0); Monocytes % (A) 5 %; Neutrophils # (A) 7.8 k/uL (1.3-7.7); Neutrophils % (A) 75 %; Platelet Count 152 k/uL (150-450); RBC 3.85 m/uL (4.30-5.90); RDW 13.3 % (11.5-15.5); WBC 10.3 k/uL (3.8-10.6)
--- NOTE | 2021-08-23 19:59 | P.HPIM ---
History of Present Illness H&P Date: 08/23/21 Darius Prajapati, is a 71-year-old male who presented to [facility] emergency room with a chief complaint of worsening shortness of breath and chest discomfort that started about 1 month ago and has been worsening. He was evaluated in the emergency room, vital examination on presentation revealed a temperature of 97.6 pulse 130 respiration 23 blood pressure 105/68 pulse ox 97% on room air Laboratory data on presentation revealed D-dimer was very high at 32.01, white blood count 19.9 hemoglobin 15.2 platelet count 207 BUN 16 creatinine 1.38 glucose 302 plasma lactic acid 6.0 and trop[address] level 0.419 CT angiogram of the chest was done in the emergency room, and revealed evidence of sagittal pulmonary embolus with extension to the bilateral segmental and subsegmental branches of all the lung lobes with evidence of right heart strain, and a wedge shaped area within the right lower lobe possibly representing a pulmonary infarct, there was also evidence of emphysema within the lung apices. Patient was admitted to intensive care unit, vascular surgery consultation, pulmonary consultation, and hematology consultation were requested. Past medical history is significant for history of coronary artery disease with previous history of angioplasty and stent placement, history of COPD, history of tobacco use, patient denies ever having blood clots in the past, however his son was diagnosed with factor V deficiency and had 4 blood clots in his legs. Past Medical History Past Medical History: Eye Disorder, GERD/Reflux, Myocardial Infarction ([place]), Pneumonia Additional Past Medical History / Comment(s): R eye glaucoma, occasional low back pain. Last Myocardial Infarction Date:: 2004 History of Any Multi-Drug Resistant Organisms: None Reported Past Surgical History: Heart Catheterization Additional Past Surgical History / Comment(s): 2004 cardiac cath/pt does not believe he had any intervention, colonoscopy/polyp removed/benign. Past Anesthesia/Blood Transfusion Reactions: Unable to Obtain Additional Past Anesthesia/Blood Transfusion Reaction / Comment(s): Pt has never had general anesthesia. Smoking Status: Current every day smoker - Past Family History Father Additional Family Medical History / Comment(s): "Bad back" Mother Family Medical History: Cancer Medications and Allergies Home Medications Medication Instructions Recorded Confirmed Type Cefuroxime Axetil [Ceftin] 500 mg PO BID 08/22/21 08/22/21 History Ergocalciferol [Vitamin D2 (1250 1,250 mcg PO ZEE 08/22/21 08/22/21 History Mcg = 98643 Iu)] Allergies Allergy/AdvReac Type Severity Reaction Status Date / Time No Known Allergies Allergy Verified 08/22/21 20:08 Physical Exam Vitals: Vital Signs Temp Pulse Resp BP Pulse Ox 08/23/21 08:30 108 H 24 92/75 95 08/23/21 08:00 96/72 08/23/21 07:30 107 H 20 94/77 98 08/23/21 07:00 105 H 10 L 105/77 100 08/23/21 06:30 106 H 26 H 83/68 100 08/23/21 06:00 101 H 14 87/71 100 08/23/21 05:00 104 H 14 87/59 99 08/23/21 04:00 106 H 27 H 86/69 100 08/23/21 03:30 103 H 18 86/69 100 08/23/21 03:00 101 H 16 96/73 100 08/23/21 02:30 107 H 21 96/73 99 08/23/21 02:00 113 H 19 89/68 98 08/23/21 01:30 98 22 87/67 100 08/23/21 01:00 101 H 14 95/70 100 08/23/21 00:30 105 H 20 90/60 99 08/23/21 00:00 105 H 24 92/67 100 08/22/21 23:30 106 H 25 H 104/78 97 08/22/21 23:00 106 H 16 115/73 97 08/22/21 22:30 110 H 21 133/88 99 08/22/21 22:00 111 H 26 H 121/91 99 08/22/21 21:30 113 H 25 H 119/77 100 08/22/21 21:00 112 H 22 124/85 94 L 08/22/21 20:50 124/85 08/22/21 20:30 117 H 28 H 124/85 98 08/22/21 20:00 123 H 30 H 106/81 95 08/22/21 19:44 128 H 30 H 99/80 93 L 08/22/21 19:35 97.6 F 08/22/21 19:14 130 H 23 105/68 97 Intake and Output 08/22/21 08/23/21 08/23/21 22:59 06:59 14:59 Intake Total 83.674 0 Balance 83.674 0 Intake: Intake, IV Titration 83.674 Amount Heparin Sod,Pork in 0.45% 83.674 NaCl 25,000 unit In 0.45 % NaCl 1 250ml.bag @ 18 UNITS/KG/HR 10.614 mls/hr IV .[id number] [facility] Rx#: [id number] Oral 0 Other: Voiding Method Urinal # Voids 1 Weight 58.967 kg 58.967 kg In general patient is alert and oriented x 3 in no distress HEENT head normocephalic and atraumatic Neck is supple no JVD no goiter no lymphadenopathy no carotid bruit Chest examination is clear to auscultation no crackles no wheezing Cardiac exam reveals regular heart sounds S1 and S2 no gallops no murmurs Abdomen is soft nontender no organomegaly with normal bowel sounds Extremity exam reveals no edema no cyanosis or clubbing Neurological examination reveals no gross focal deficits Results CBC & Chem 7: 08/23/21 18:43 08/23/21 08:38 Labs: Abnormal Lab Results - Last 24 Hours (Table) 08/22/21 08/22/21 08/22/21 Range/Units 19:45 19:45 19:45 WBC 19.9 H (3.8-10.6) k/uL MCV 100.6 H (80.0-100.0) fL Neutrophils # 17.6 H (1.3-7.7) k/uL APTT (22.0-30.0) sec D-Dimer 32.01 H (<0.60) mg/L FEU Sodium 136 L (137-145) mmol/L Carbon Dioxide 13 L (22-30) mmol/L Creatinine 1.38 H (0.66-1.25) mg/dL Glucose 302 H (74-99) mg/dL Plasma Lactic Acid Feliciano (0.7-2.0) mmol/L Total Bilirubin 1.7 H (0.2-1.3) mg/dL Troponin I (0.000-0.034) ng/mL 08/22/21 08/22/21 08/22/21 Range/Units 19:45 19:45 22:43 WBC (3.8-10.6) k/uL MCV (80.0-100.0) fL Neutrophils # (1.3-7.7) k/uL APTT (22.0-30.0) sec D-Dimer (<0.60) mg/L FEU Sodium (137-145) mmol/L Carbon Dioxide (22-30) mmol/L Creatinine (0.66-1.25) mg/dL Glucose (74-99) mg/dL Plasma Lactic Acid Feliciano 9.2 H* 6.0 H* (0.7-2.0) mmol/L Total Bilirubin (0.2-1.3) mg/dL Troponin I 0.419 H* (0.000-0.034) ng/mL 08/23/21 08/23/21 08/23/21 Range/Units 02:00 03:56 05:08 WBC (3.8-10.6) k/uL MCV (80.0-100.0) fL Neutrophils # (1.3-7.7) k/uL APTT 106.2 H* (22.0-30.0) sec D-Dimer (<0.60) mg/L FEU Sodium (137-145) mmol/L Carbon Dioxide (22-30) mmol/L Creatinine (0.66-1.25) mg/dL Glucose (74-99) mg/dL Plasma Lactic Acid Feliciano 4.3 H* 2.3 H* (0.7-2.0) mmol/L Total Bilirubin (0.2-1.3) mg/dL Troponin I (0.000-0.034) ng/mL 08/23/21 08/23/21 08/23/21 Range/Units 05:14 08:38 08:38 WBC (3.8-10.6) k/uL MCV (80.0-100.0) fL Neutrophils # (1.3-7.7) k/uL APTT (22.0-30.0) sec D-Dimer (<0.60) mg/L FEU Sodium (137-145) mmol/L Carbon Dioxide (22-30) mmol/L Creatinine (0.66-1.25) mg/dL Glucose (74-99) mg/dL Plasma Lactic Acid Feliciano 2.7 H* (0.7-2.0) mmol/L Total Bilirubin (0.2-1.3) mg/dL Troponin I 0.366 H* 0.292 H* (0.000-0.034) ng/mL Thrombosis Risk Factor Assmnt - Choose All That Apply Any of the Below Risk Factors Present?: Yes Other Risk Factors: Yes Each Risk Factor Represents 2 Points: Age 61-74 years Each Risk Factor Represents 3 Points: History of DVT/PE Other congenital or acquired thrombophilia - If yes, enter type in comment: No Thrombosis Risk Factor Assessment Total Risk Factor Score: 5 Thrombosis Risk Factor Assessment Level: High Risk Assessment and Plan Plan: Acute pulmonary embolism, extensive, with evidence of right ventricular strain Underlying history of coronary artery disease with previous history of an gioplasty and stent placement Underlying history of COPD Underlying history of tobacco use Family history of factor V deficiency with his son having history of DVT Patient was admitted to intensive care unit He was started on IV heparin Pulmonary consultation and vascular surgery consultation were requested Hematology consultation was requested. Medications reviewed will recheck labs and follow-up in am
[2021-08-23 20:12] LABS: Appearance,Urine Clear (Clear); Bilirubin,Urine Negative (Negative); Blood,Urine Negative (Negative); Color,Urine Yellow; Glucose,Urine (UA) Trace (Negative); Hyaline Casts,Urine 12 /lpf (0-2); Ketones,Urine 1+ (Negative); Leukocyte Esterase,Urine Negative (Negative); Mucus,Urine Rare /hpf; Nitrite,Urine Negative (Negative); PH, Urine 5.5 (5.0-8.0); Protein,Urine 1+ (Negative); RBC,Urine <1 /hpf (0-5); Specific Gravity,Urine 1.043 (1.001-1.035); Urobilinogen,Urine <2.0 mg/dL (<2.0); WBC,Urine 2 /hpf (0-5)
[2021-08-24] MEDS: HYDROcodone/APAP 7.5-325MG 1 EACH TAB PO PRN ×2 (00:46→11:09)
[2021-08-24 06:12] VITALS: TEMP 98.1
[2021-08-24 07:26] LABS: Basophils # (A) 0.1 k/uL (0-0.2); Basophils % (A) 1 %; Eosinophils % (A) 0 %; HCT 35.2 % (39.0-53.0); HGB 11.4 gm/dL (13.0-17.5); Lymphocytes # (A) 1.9 k/uL (1.0-4.8); Lymphocytes % (A) 21 %; MCH 32.2 pg (25.0-35.0); MCHC 32.3 g/dL (31.0-37.0); MCV 99.8 fL (80.0-100.0); Mean Platelet Volume 9.3; Monocytes # (A) 0.5 k/uL (0-1.0); Monocytes % (A) 6 %; Neutrophils # (A) 6.7 k/uL (1.3-7.7); Neutrophils % (A) 72 %; Platelet Count 131 k/uL (150-450); RBC 3.53 m/uL (4.30-5.90); RDW 12.7 % (11.5-15.5); WBC 9.3 k/uL (3.8-10.6)
[2021-08-24 07:30] LABS: Partial Thromboplastin Time 27.8 sec (22.0-30.0)
[2021-08-24 07:43] LABS: ALT 18 U/L (4-49); AST 27 U/L (17-59); African American GFR (CKD) >90 (>60 ml/min/1.73 sqM); Albumin 3.1 g/dL (3.5-5.0); Alkaline Phosphatase 41 U/L (38-126); Anion Gap 5 mmol/L; Blood Urea Nitrogen 16 mg/dL (9-20); Carbon Dioxide 22 mmol/L (22-30); Chloride 112 mmol/L (98-107); Glucose 92 mg/dL (74-99); Non-African American GFR(CKD) >90 (>60 ml/min/1.73 sqM); Potassium 3.7 mmol/L (3.5-5.1); Sodium 139 mmol/L (137-145); Total Bilirubin 0.8 mg/dL (0.2-1.3); Total Protein 5.7 g/dL (6.3-8.2)
[2021-08-24] MEDS ORDERED: APIXABAN 5 MG TAB PO SCH (09:15)
--- NOTE | 2021-08-24 11:06 | P.PN ---
Subjective Progress Note Date: 08/24/21 Patient is seen and examined in the ICU. He is status post thrombolytics with EKOS. He states his breathing has improved. His oxygen level is 96% on room air. He states his breathing has improved. Denies any chest pain. He tolerated his diet. No bleeding from catheter site. Objective - Vital Signs Vital signs: Vital Signs Temp 98.1 F 08/24/21 04:00 Pulse 92 08/24/21 07:00 Resp 24 08/24/21 07:00 BP 121/70 08/24/21 07:00 Pulse Ox 96 08/24/21 07:00 Intake & Output 08/23/21 08/24/21 08/24/21 18:59 06:59 18:59 Intake Total 50 1973.069 95 Output Total 450 425 0 Balance -400 1548.069 95 Weight 58.967 kg 67.4 kg Intake: IV 50 1045 95 Alteplase 10 mg In Sodium 220 20 Chloride 0.9% 90 ml @ 1 MG/HR 10 mls/hr IV .Q10H [facility] Rx#:[id number] Heparin Sod,Pork in 0.45% 55 5 NaCl 25,000 unit In 0.45 % NaCl 1 250ml.bag @ 2.5 mls/hr IV .Q24H [facility] Rx#: [id number] Sodium Chloride 0.9% 1, 770 70 000 ml @ 35 mls/hr IV . Q24H [facility] Rx#:[id number] Intake, IV Titration 208.069 Amount Alteplase 10 mg In Sodium 10 Chloride 0.9% 90 ml @ 1 MG/HR 10 mls/hr IV .Q10H [facility] Rx#:[id number] Alteplase 10 mg In Sodium 10 Chloride 0.9% 90 ml @ 1 MG/HR 10 mls/hr IV .Q10H [facility] Rx#:[id number] Heparin Sod,Pork in 0.45% 113.069 NaCl 25,000 unit In 0.45 % NaCl 1 250ml.bag @ 18 UNITS/KG/HR 10.614 mls/hr IV .[id number] [facility] Rx#: [id number] Heparin Sod,Pork in 0.45% 2.5 NaCl 25,000 unit In 0.45 % NaCl 1 250ml.bag @ 2.5 mls/hr IV .Q24H [facility] Rx#: [id number] Heparin Sod,Pork in 0.45% 2.5 NaCl 25,000 unit In 0.45 % NaCl 1 250ml.bag @ 2.5 mls/hr IV .Q24H [facility] Rx#: [id number] Sodium Chloride 0.9% 1, 35 000 ml @ 35 mls/hr IV . Q24H [facility] Rx#:[id number] Sodium Chloride 0.9% 1, 35 000 ml @ 35 mls/hr IV . Q24H [facility] Rx#:[id number] Oral 0 720 Output: Urine 450 425 0 Other: Voiding Method Urinal Urinal # Voids 1 0 0 - Exam General appearance: The patient is alert, oriented, appears in no acute distress. HET: Head is normocephalic and atraumatic. Neck: Supple without lymphadenopathy. Trachea midline. Heart: S1 S2. Regular rate and rhythm. Lungs: Clear to auscultation bilaterally. Abdomen: Soft, nontender, nondistended. Extremities: Normal skin color and turgor. No cyanosis, rash, ulceration, clubbing, or edema. Right groin with sheath intact. No hematoma noted. Neurological: No focal deficits. Strength and sensation are grossly intact. - Labs CBC & Chem 7: 08/24/21 07:01 08/24/21 07:01 Labs: Abnormal Lab Results - Last 24 Hours (Table) 08/23/21 08/23/21 08/23/21 Range/Units 08:38 08:38 08:38 WBC 11.0 H (3.8-10.6) k/uL RBC 3.92 L (4.30-5.90) m/uL Hgb 12.9 L (13.0-17.5) gm/dL Hct (39.0-53.0) % MCV 101.7 H (80.0-100.0) fL Plt Count (150-450) k/uL Neutrophils # 8.8 H (1.3-7.7) k/uL APTT (22.0-30.0) sec Chloride (98-107) mmol/L Carbon Dioxide (22-30) mmol/L Glucose (74-99) mg/dL Plasma Lactic Acid Feliciano 2.7 H* (0.7-2.0) mmol/L Calcium (8.4-10.2) mg/dL Troponin I 0.292 H* (0.000-0.034) ng/mL Total Protein (6.3-8.2) g/dL Total Protein (PEP) (6.2-8.2) g/dL Albumin (3.5-5.0) g/dL Ur Specific [place] (1.001-1.035) Urine Protein (Negative) Urine Glucose (UA) (Negative) Urine Ketones (Negative) Hyaline Casts (0-2) /lpf Urine Mucus (None) /hpf 08/23/21 08/23/21 08/23/21 Range/Units 08:38 12:00 15:22 WBC (3.8-10.6) k/uL RBC (4.30-5.90) m/uL Hgb (13.0-17.5) gm/dL Hct (39.0-53.0) % MCV (80.0-100.0) fL Plt Count (150-450) k/uL Neutrophils # (1.3-7.7) k/uL APTT 50.2 H (22.0-30.0) sec Chloride 110 H (98-107) mmol/L Carbon Dioxide 16 L (22-30) mmol/L Glucose 125 H (74-99) mg/dL Plasma Lactic Acid Feliciano (0.7-2.0) mmol/L Calcium 8.2 L (8.4-10.2) mg/dL Troponin I (0.000-0.034) ng/mL Total Protein (6.3-8.2) g/dL Total Protein (PEP) (6.2-8.2) g/dL Albumin (3.5-5.0) g/dL Ur Specific [place] 1.043 H (1.001-1.035) Urine Protein 1+ H (Negative) Urine Glucose (UA) Trace H (Negative) Urine Ketones 1+ H (Negative) Hyaline Casts 12 H (0-2) /lpf Urine Mucus Rare H (None) /hpf 08/23/21 08/23/21 08/24/21 Range/Units 18:43 18:43 07:01 WBC (3.8-10.6) k/uL RBC 3.85 L (4.30-5.90) m/uL Hgb 12.6 L (13.0-17.5) gm/dL Hct 38.2 L (39.0-53.0) % MCV (80.0-100.0) fL Plt Count (150-450) k/uL Neutrophils # 7.8 H (1.3-7.7) k/uL APTT (22.0-30.0) sec Chloride 112 H (98-107) mmol/L Carbon Dioxide (22-30) mmol/L Glucose (74-99) mg/dL Plasma Lactic Acid Fel[place] (0.7-2.0) mmol/L Calcium 8.0 L (8.4-10.2) mg/dL Troponin I (0.000-0.034) ng/mL Total Protein 5.7 L (6.3-8.2) g/dL Total Protein (PEP) 6.0 L (6.2-8.2) g/dL Albumin 3.1 L (3.5-5.0) g/dL Ur Specific [place] (1.001-1.035) Urine Protein (Negative) Urine Glucose (UA) (Negative) Urine Ketones (Negative) Hyaline Casts (0-2) /lpf Urine Mucus (None) /hpf 08/24/21 Range/Units 07:01 WBC (3.8-10.6) k/uL RBC 3.53 L (4.30-5.90) m/uL Hgb 11.4 L (13.0-17.5) gm/dL Hct 35.2 L (39.0-53.0) % MCV (80.0-100.0) fL Plt Count 131 L (150-450) k/uL Neutrophils # (1.3-7.7) k/uL APTT (22.0-30.0) sec Chloride (98-107) mmol/L Carbon Dioxide (22-30) mmol/L Glucose (74-99) mg/dL Plasma Lactic Acid [place] (0.7-2.0) mmol/L Calcium (8.4-10.2) mg/dL Troponin I (0.000-0.034) ng/mL Total Protein (6.3-8.2) g/dL Total Protein (PEP) (6.2-8.2) g/dL Albumin (3.5-5.0) g/dL Ur Specific [place] (1.001-1.035) Urine Protein (Negative) Urine Glucose (UA) (Negative) Urine Ketones (Negative) Hyaline Casts (0-2) /lpf Urine Mucus (None) /hpf Microbiology - Last 24 Hours (Table) 08/22/21 21:00 Blood Culture - Preliminary Blood No Growth after 24 hours 08/22/21 21:15 Blood Culture - Preliminary Blood No Growth after 24 hours Assessment and Plan Assessment: 1. Bilateral pulmonary emboli with right heart strain is post thrombolystics with EKOS 2. Elevated troponins 3. History of coronary artery disease 4. Current smoker Plan: 1. Discontinue EKOS, heparin discontinued 2. Start Eliquis 10 mg BID, script sent 3. Diet as tolerated 4. May increase activity 5. Smoking cessation 6. Hematology consulted, patient's son has history of blood clots with possible clotting disorder 7. Patient is cleared by vascular surgery for discharge. Follow-up in 2 weeks. The impression and plan of care has been dictated as directed. Dr. Dover I performed a history and examination of this patient, discussed the same with the dictator. I agree with the dictator's note ,documented as a scribe. Any additional findings or plans will be noted.
[2021-08-24] MEDS: HEPARIN SOD,PORK IN 0.45% NACL 25,000 UNIT in 0.45% NACL 1 250ML.BAG IV SCH (11:08)
--- NOTE | 2021-08-24 11:50 | P.PN ---
Subjective Progress Note Date: 08/24/21 Principal diagnosis: Shortness of breath This is a 71-year-old white male with history of coronary artery disease, previous stent placement, history of underlying COPD, tobacco dependence syndrome, strong family history of thromboembolic disease, patient presented to the hospital with one month history of shortness of breath, vague chest pain across the chest anteriorly. Patient was found to have elevated d-dimer, and abnormal CT angiogram of the chest showing large sagittal pulmonary embolism with extension to segmental and subsegmental branches bilaterally, and there was evidence of right heart strain. Echocardiogram is pending. Patient was admitted to the ICU, and he is being considered for EKOS thrombolytic therapy by vascular surgery. In the meantime the patient is on heparin, he is also on 3 L nasal cannula with O2 saturation of 95%. Patient is hemodynamically stable, blood pressure is 97/44. And does not seem to be in any distress during my evaluation. Venous Doppler of the legs showed nonocclusive DVT bilaterally Patient had no previous history of DVT, or ulnar embolism, however his son had deep vein thromboses and pulmonary embolism at age 39 and he was diagnosed as having factor V Leyden mutation On 08/24/2021 patient seen in follow-up in the intensive care unit. History he underwent ultrasound-guided right femoral vein access with placement of bilateral thrombolytic EKOS catheters and initiation of thrombolytic lysis and bilateral selective pulmonary artery angiogram. Patient was brought in to the ICU following the procedure. He has remained hemodynamically stable through the night. Received TPA and heparin as well as coolant per protocol. Today she seen in the intensive care unit, his right femoral access has been removed, groin is clean dry and intact. He is breathing comfortably, he is on room air pulse ox is 96%, blood pressure stable. He is in sinus mechanism. Denies any shortness of breath, lung sounds are clear, no rhonchi or wheezing, still has some mild left-sided chest wall pain for which the patient is being given [place]. No hemoptysis. His IV fluids have been hep-locked. Today's labs have been reviewed, white blood cell count is 9.3, hemoglobin is 11.4, platelet count is 131, sodium is 139, potassium 3.7, chloride is 112, CO2 is 22, BUN 16 creatinine 0.73. No other complaints. Patient is tolerating oral diet, he is voiding. He has been started on Apixaban Objective - Vital Signs Vital signs: Vital Signs Temp 98.1 F 08/24/21 04:00 Pulse 79 08/24/21 11:00 Resp 28 H 08/24/21 11:17 BP 119/69 08/24/21 11:00 Pulse Ox 96 08/24/21 11:17 Intake & Output 08/23/21 08/24/21 08/24/21 18:59 06:59 18:59 Intake Total 50 1973.069 530 Output Total 450 425 250 Balance -400 1548.069 280 Weight 58.967 kg 67.4 kg Intake: IV 50 1045 170 Alteplase 10 mg In Sodium 220 20 Chloride 0.9% 90 ml @ 1 MG/HR 10 mls/hr IV .Q10H [facility] Rx#:[id number] Heparin Sod,Pork in 0.45% 55 10 NaCl 25,000 unit In 0.45 % NaCl 1 250ml.bag @ 2.5 mls/hr IV .Q24H [facility] Rx#: [id number] Sodium Chloride 0.9% 1, 770 140 000 ml @ 35 mls/hr IV . Q24H [facility] Rx#:[id number] Intake, IV Titration 208.069 Amount Alteplase 10 mg In Sodium 10 Chloride 0.9% 90 ml @ 1 MG/HR 10 mls/hr IV .Q10H [facility] Rx#:[id number] Alteplase 10 mg In Sodium 10 Chloride 0.9% 90 ml @ 1 MG/HR 10 mls/hr IV .Q10H [facility] Rx#:[id number] Heparin Sod,Pork in 0.45% 113.069 NaCl 25,000 unit In 0.45 % NaCl 1 250ml.bag @ 18 UNITS/KG/HR 10.614 mls/hr IV .[id number] [facility] Rx#: [id number] Heparin Sod,Pork in 0.45% 2.5 NaCl 25,000 unit In 0.45 % NaCl 1 250ml.bag @ 2.5 mls/hr IV .Q24H [facility] Rx#: [id number] Heparin Sod,Pork in 0.45% 2.5 NaCl 25,000 unit In 0.45 % NaCl 1 250ml.bag @ 2.5 mls/hr IV .Q24H [facility] Rx#: [id number] Sodium Chloride 0.9% 1, 35 000 ml @ 35 mls/hr IV . Q24H [facility] Rx#:[id number] Sodium Chloride 0.9% 1, 35 000 ml @ 35 mls/hr IV . Q24H [facility] Rx#:[id number] Oral 0 720 360 Output: Urine 450 425 250 Other: Voiding Method Urinal Urinal Urinal # Voids 1 0 0 - Exam GENERAL EXAM: Alert, awake, oriented times three, 71 yo male resting in bed, satting 97% on room air comfortable in no apparent distress. HEAD: Normocephalic/atraumatic. EYES: Normal reaction of pupils, equal size. Conjunctiva pink, sclera white. NOSE: Clear with pink turbinates. THROAT: No erythema or exudates. NECK: No masses, no JVD, no thyroid enlargement, no adenopathy. CHEST: No chest wall deformity. Symmetrical expansion. LUNGS: Equal air entry with no crackles, wheeze, rhonchi or dullness. CVS: Regular rate and rhythm, normal S1 and S2, no gallops, no murmurs, no rubs ABDOMEN: Soft, nontender. No hepatosplenomegaly, normal bowel sounds, no guarding or rigidity. EXTREMITIES: No clubbing, no edema, no cyanosis, 2+ pulses and upper and lower extremities. MUSCULOSKELETAL: Muscle strength and tone normal. SPINE: No scoliosis or deformity SKIN: No rashes CENTRAL NERVOUS SYSTEM: Alert and oriented -3. No focal deficits, tone is normal in all 4 extremities. PSYCHIATRIC: Alert and oriented -3. Appropriate affect. Intact judgment and insight. - Labs CBC & Chem 7: 08/24/21 07:01 08/24/21 07:01 Labs: Abnormal Lab Results - Last 24 Hours (Table) 08/23/21 08/23/21 08/23/21 Range/Units 08:38 08:38 12:00 WBC 11.0 H (3.8-10.6) k/uL RBC 3.92 L (4.30-5.90) m/uL Hgb 12.9 L (13.0-17.5) gm/dL Hct (39.0-53.0) % MCV 101.7 H (80.0-100.0) fL Plt Count (150-450) k/uL Neutrophils # 8.8 H (1.3-7.7) k/uL APTT 50.2 H (22.0-30.0) sec Chloride 110 H (98-107) mmol/L Carbon Dioxide 16 L (22-30) mmol/L Glucose 125 H (74-99) mg/dL Calcium 8.2 L (8.4-10.2) mg/dL Total Protein (6.3-8.2) g/dL Total Protein (PEP) (6.2-8.2) g/dL Albumin (3.5-5.0) g/dL Ur Specific D Lo (1.001-1.035) Urine Protein (Negative) Urine Glucose (UA) (Negative) Urine Ketones (Negative) Hyaline Casts (0-2) /lpf Urine Mucus (None) /hpf 08/23/21 08/23/21 08/23/21 Range/Units 15:22 18:43 18:43 WBC (3.8-10.6) k/uL RBC 3.85 L (4.30-5.90) m/uL Hgb 12.6 L (13.0-17.5) gm/dL Hct 38.2 L (39.0-53.0) % MCV (80.0-100.0) fL Plt Count (150-450) k/uL Neutrophils # 7.8 H (1.3-7.7) k/uL APTT (22.0-30.0) sec Chloride (98-107) mmol/L Carbon Dioxide (22-30) mmol/L Glucose (74-99) mg/dL Calcium (8.4-10.2) mg/dL Total Protein (6.3-8.2) g/dL Total Protein (PEP) 6.0 L (6.2-8.2) g/dL Albumin (3.5-5.0) g/dL Ur Specific D Lo 1.043 H (1.001-1.035) Urine Protein 1+ H (Negative) Urine Glucose (UA) Trace H (Negative) Urine Ketones 1+ H (Negative) Hyaline Casts 12 H (0-2) /lpf Urine Mucus Rare H (None) /hpf 08/24/21 08/24/21 Range/Units 07:01 07:01 WBC (3.8-10.6) k/uL RBC 3.53 L (4.30-5.90) m/uL Hgb 11.4 L (13.0-17.5) gm/dL Hct 35.2 L (39.0-53.0) % MCV (80.0-100.0) fL Plt Count 131 L (150-450) k/uL Neutrophils # (1.3-7.7) k/uL APTT (22.0-30.0) sec Chloride 112 H (98-107) mmol/L Carbon Dioxide (22-30) mmol/L Glucose (74-99) mg/dL Calcium 8.0 L (8.4-10.2) mg/dL Total Protein 5.7 L (6.3-8.2) g/dL Total Protein (PEP) (6.2-8.2) g/dL Albumin 3.1 L (3.5-5.0) g/dL Ur Specific D Lo (1.001-1.035) Urine Protein (Negative) Urine Glucose (UA) (Negative) Urine Ketones (Negative) Hyaline Casts (0-2) /lpf Urine Mucus (None) /hpf Microbiology - Last 24 Hours (Table) 08/22/21 21:00 Blood Culture - Preliminary Blood No Growth after 24 hours 08/22/21 21:15 Blood Culture - Preliminary Blood No Growth after 24 hours Assessment and Plan Plan: Assessment: #1. Acute pulmonary embolism with suspected right ventricular strain, S/p EKOS catheter placement with thrombolysis on 08/23/2021 #2. Family history of Factor V Leyden mutation in his son #3. History of underlying COPD #4. Tobacco dependence syndrome #5. Previous history of myocardial infarction #6. Coronary artery disease with previous stent placement Plan: Patient has been transitioned to oral anticoagulation with Eliquis Hemodynamically patient is stable Breathing comfortably Blood pressure is been stable In sinus rhythm Possible discharge home today Patient will need lifetime anticoagulation in view of strong family history of PE/DVT and family history of Factor V Leyden mutation Patient will not need additional testing for Factor V Leyden I have personally seen and examined the patient, performed the documentation and the assessment and plan as written. Number of minutes spent on the visit: [10] Time with Patient: Less than 30
--- NOTE | 2021-08-24 13:01 | ECHOF ---
Referral Reason:PE, assess for right heart strain MEASUREMENTS -------- HEIGHT: 152.4 cm WEIGHT: 59.0 kg BP: RVIDd: 3.8 cm (< 3.3) IVSd: 1.0 cm (0.6 - 1.1) LVIDd: 3.7 cm (3.9 - 5.3) LVPWd: 0.9 cm (0.6 - 1.1) IVSs: 1.6 cm LVIDs: 3.1 cm LVPWs: 1.1 cm Ao Diam: 3.7 cm (2.0 - 3.7) AV Cusp: 1.3 cm (1.5 - 2.6) MV EXCURSION: 14.577 mm (> 18.000) MV EF SLOPE: 74 mm/s (70 - 150) EPSS: 0.8 cm MV E Andrew: 0.35 m/s MV DecT: 207 ms MV A Andrew: 0.75 m/s MV E/A Ratio: 0.47 RAP: 5.00 mmHg RVSP: 44.75 mmHg TAPSE: 1.75 cm FINDINGS -------- Sinus rhythm. This was a technically good study. LV size, wall thickness and systolic function are normal, with an EF greater than 55%. The left kervin tricular size is normal. The right ventricle is mild to moderately enlarged. The left atrial size is normal. The right atrial size is normal. There is mild aortic valve sclerosis. There is no evidence of aortic regurgitation. Mild mitral regurgitation is present. [id number] tricuspid regurgitation present. There is mild pulmonary hypertension. The right ventricular systolic pressure, as measured by Doppler, is 44.75mmHg. There is no pulmonic regurgitation present. There is no pericardial effusion. CONCLUSIONS -------- 1. LV size, wall thickness and systolic function are normal, with an EF greater than 55%. 2. The right ventricle is mild to moderately enlarged. 3. The left atrial size is normal. 4. The right atrial size is normal. 5. There is mild aortic valve sclerosis. 6. Mild mitral regurgitation is present. 7. Wqer-hv-[id number] tricuspid regurgitation present. 8. There is mild pulmonary hypertension. 9. The right ventricular systolic pressure, as measured by Doppler, is 44.75mmHg. 10. There is no pericardial effusion. [employer]IC: Violeta Bush RDCS
[2021-08-24 14:37] VITALS: BP 112/71
[2021-08-24 15:18] VITALS: PULSE 90; RESP 17
--- NOTE | 2021-08-24 15:40 | CDI ---
Documentation Clarification Form Date: 08/24/2021 03:24:34 PM From: Fatmata Juarez RN CCDS Admit Date: 08/22/2021 09:11:00 PM Patient Name: Darius Prajapati Visit Number: [id number] Discharge Date: ATTENTION: The Clinical Documentation Specialists (CDI) and [facility] Coding Staff appreciate your assistance in clarifying documentation. Please respond to the clarification below the line at the bottom and electronically sign. The CDI & [facility] Coding staff will review the response and follow-up if needed. Please note: Queries are made part of the Legal Health Record. If you have any questions, please contact the author of this message via ITS. Dr. Robel Brunner Acute pulmonary embolism, extensive, with evidence of right ventricular strain 08/23, H&P. Additional clarification is requested. History/Risk Factors: 71-year-old male presents to the ED with shortness of breath and discomfort that started one month ago. 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 08/23, H&P. Clinical Indicators: BNP 08/22: 6670 Echo results 08/23: EF greater than 55% Right ventricular systolic pressure as measured by Doppler, is 44.75mmHg. Radiology results: CTA 08/22: Sagittal pulmonary embolus with extension to the bilateral segmental and subsegmental branches of all the lungs lobes. Flattening of the interventricular septum with reflux contrast into the IVC consistent with right heart strain. Consults: 08/23 Vascular Sx Bilateral pulmonary emboli with likely right heart strain. Treatment: 08/23 Ekos thrombolysis Please clarify the acuity and etiology of Right ventricular strain, if known: [ x ] Acute Cor pulmonale due to pulmonary embolism [ ] Unable to determine [ ] Other, please specify Template Last Revised: August 2020) DED
[2021-08-25 13:26] LABS: Gamma Globulin 0.58 g/dL (0.70-1.50)
[2021-08-25 14:53] LABS: Free Kappa Lt Chain Qnt, Serum 1.56 mg/dL (0.33-1.94); Free Lambda Lt Chain Qnt, Seru 1.24 mg/dL (0.57-2.63)
--- NOTE | 2021-08-27 10:27 | P.DS ---
Providers Date of admission: 08/22/21 21:11 Expected date of discharge: 08/24/21 Attending physician: Robel Brunner Consults: 08/22/21 21:11 Consult Physician Stat Consulting Provider: José Antonio Dockery Consult Reason/Comments: Pulmonary embolisms, critical care management Do you want consulting provider notified?: Yes 08/22/21 21:12 Consult Physician Stat Consulting Provider: Waldo Dover Consult Reason/Comments: Pulmonary embolism Do you want consulting provider notified?: Yes 08/23/21 08:25 Consult Physician Routine Consulting Provider: Tashi Chu Consult Reason/Comments: PE, family history of clotting disorder Do you want consulting provider notified?: Yes Primary care physician: Robel Brunner [facility] Course: Discharge diagnosis Acute pulmonary embolism, extensive, with evidence of right ventricular strain Underlying history of coronary artery disease with previous history of angioplasty and stent placement Underlying history of COPD Underlying history of tobacco use Family history of factor V deficiency with his son having history of DVT Hospital course Darius Prajapati, is a 71-year-old male who presented to [facility] emergency room with a chief complaint of worsening shortness of breath and chest discomfort that started about 1 month ago and has been worsening. He was evaluated in the emergency room, vital examination on presentation revealed a temperature of 97.6 pulse 130 respiration 23 blood pressure 105/68 pulse ox 97% on room air Laboratory data on presentation revealed D-dimer was very high at 32.01, white blood count 19.9 hemoglobin 15.2 platelet count 207 BUN 16 creatinine 1.38 glucose 302 plasma lactic acid 6.0 and troponin level 0.419 CT angiogram of the chest was done in the emergency room, and revealed evidence of sagittal pulmonary embolus with extension to the bilateral segmental and subsegmental branches of all the lung lobes with evidence of right heart strain, and a wedge shaped area within the right lower lobe possibly representing a pulmonary infarct, there was also evidence of emphysema within the lung apices. Patient was admitted to intensive care unit, vascular surgery consultation, pulmonary consultation, and hematology consultation were requested. Past medical history is significant for history of coronary artery disease with previous history of angioplasty and stent placement, history of COPD, history of tobacco use, patient denies ever having blood clots in the past, however his son was diagnosed with factor V deficiency and had 4 blood clots in his legs. On 08/24/2021 patient is alert and oriented 3. Patient is status post thrombolytics with EKOS. Patient has been evaluated by vascular surgeon and hematology services has been started on eliquis starter pack. At this time patient denies chest pain or shortness breath. Patient denies nausea vomiting or diarrhea. Patient denies any urinary burning or frequency. Patient to follow-up with vascular surgery and pulmonary services outpatient for further management Patient Condition at Discharge: Stable Plan - Discharge Summary Discharge Rx Participant: No New Discharge Prescriptions: New Apixaban [Eliquis Starter Pack (for VTE)] 5 - 10 mg PO DIRECTED 30 Days #1 each Continue Cefuroxime Axetil [Ceftin] 500 mg PO BID Ergocalciferol [Vitamin D2 (1250 Mcg = 75981 Iu)] 1,250 mcg PO ZEE Discharge Medication List Cefuroxime Axetil [Ceftin] 500 mg PO BID 08/22/21 [History] Ergocalciferol [Vitamin D2 (1250 Mcg = 13293 Iu)] 1,250 mcg PO ZEE 08/22/21 [History] Apixaban [Eliquis Starter Pack (for VTE)] 5 - 10 mg PO DIRECTED 30 Days #1 each 08/24/21 [Rx] Follow up Appointment(s)/Referral(s): Jessica Silva MD [STAFF PHYSICIAN] - 09/03/21 9:00 am Waldo Dover DO [STAFF PHYSICIAN] - 09/07/21 2:45 pm Robel Brunner MD [Primary Care Provider] - 08/27/21 10:30 am Patient Instructions/Handouts: Pulmonary Embolism (DC) Discharge Disposition: HOME SELF-CARE
--- NOTE | 2021-08-31 15:30 | CDI ---
Documentation Clarification Form Date: 08/31/2021 03:04:08 PM From: Fatmata Juarez RN CCDS Admit Date: 08/22/2021 09:11:00 PM Patient Name: Darius Prajapati Visit Number: [id number] Discharge Date: 08/24/2021 03:42:00 PM ATTENTION: The Clinical Documentation Specialists (CDI) and [facility] Coding Staff appreciate your assistance in clarifying documentation. Please respond to the clarification below the line at the bottom and electronically sign. The CDI & [facility] Coding staff will review the response and follow-up if needed. Please note: Queries are made part of the Legal Health Record. If you have any questions, please contact the author of this message via ITS. Dr. Robel Brunner Right lower extremity DVT is documented Heme Onc Consult, 08/23, but is not noted in subsequent documentation. Clarification is requested. History/Risk Factors:71-year-old male presents to the ED with worsening shortness of breath and chest discomfort started one month ago and worsening. Medical history: Everyday smoker and Son is diagnosed with Factor V deficiency and has 4 blood clots in his legs. 08/23, HP. Clinical Indicators: 08/23 Venous doppler: Right Leg: Non occluding DVT is noted upper femoral vein valves and mid femoral vein . Treatment: 08/22 - 08/24 Heparin IV; 08/24 Eliquis 10mg BID. Please clarify if the Right lower extremity DVT is: [ XXX ] DVT confirmed [ ] DVT ruled out [ ] Other condition, please specify [ ] Unable to determine (Template Last Revised: August 2020) MTDD
== END 2021-08-24 15:42 | disposition home or self-care (01) | DRG 250 ==
LOC: EC 19:08 → 2SICU 21:11
PROVIDERS: ADMIT Internal Medicine; ATTEND Internal Medicine
PROC: B31T1ZZ Fluoroscopy of Left Pulmonary Artery using Low Osmolar Contrast (ICD-10-PCS; 2021-08-23)
PROC: B31S1ZZ Fluoroscopy of Right Pulmonary Artery using Low Osmolar Contrast (ICD-10-PCS; 2021-08-23)
PROC: 02FR3Z0 Fragmentation of Left Pulmonary Artery, Percutaneous Approach, Ultrasonic (ICD-10-PCS; principal; 2021-08-23 13:45)
PROC: 02FQ3Z0 Fragmentation of Right Pulmonary Artery, Percutaneous Approach, Ultrasonic (ICD-10-PCS; 2021-08-23 13:45)
PROC: 3E06317 Introduction of Other Thrombolytic into Central Artery, Percutaneous Approach (ICD-10-PCS; 2021-08-23 13:45)
DX: I82.401 Acute embolism and thrombosis of unspecified deep veins of right lower extremity (principal); I26.09 Other pulmonary embolism with acute cor pulmonale; F17.200 Nicotine dependence, unspecified, uncomplicated; I25.10 Atherosclerotic heart disease of native coronary artery without angina pectoris; I25.2 Old myocardial infarction; J44.9 Chronic obstructive pulmonary disease, unspecified; Z20.822 Contact with and (suspected) exposure to COVID-19; Z83.2 Family history of diseases of the blood and blood-forming organs and certain disorders involving the immune mechanism; Z86.718 Personal history of other venous thrombosis and embolism; Z95.5 Presence of coronary angioplasty implant and graft; R77.8 Other specified abnormalities of plasma proteins
CPT/HCPCS: 36415; 37211; 71046; 71275; 75746; 76937; 80053; 81001; 82607; 82746; 83605; 83690; 83735; 83880; 83883; 84153; 84165; 84484; 85025; 85379; 85384; 85610; 85730; 86334; 87040; 87635; 93005; 93306; 93970; 96361; 96374; 96375; 99291

== ENCOUNTER 2022-01-06 08:28 | Day surgery (SDC) | payer MEDICARE ==
[~2022-01-06 08:28] MED LIST: LACTATED RINGERS 1,000 ML IV SCH
[2022-01-06 08:50] VITALS: TEMP 96.7
[2022-01-06] MEDS ORDERED: PROPOFOL 10 MG/ML 20 ML VIAL IV ONE (09:42)
--- NOTE | 2022-01-06 09:44 | P.GSHP ---
History of Present Illness H&P Date: 01/06/22 Chief Complaint: Screening colonoscopy This is a 71-year-old male presents today for screening colonoscopy patient denies any significant GI complaints. Past Medical History Past Medical History: Blood Disorder, COPD, Eye Disorder, GERD/Reflux, Myocardial Infarction ([place]), Pneumonia, Pulmonary Embolus (PE) Additional Past Medical History / Comment(s): R eye glaucoma, occasional low back pain. 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 colon polyps Last Myocardial Infarction Date:: 2004 History of Any Multi-Drug Resistant Organisms: None Reported Past Surgical History: Heart Catheterization Additional Past Surgical History / Comment(s): 2004 cardiac cath/pt does not believe he had any intervention, colonoscopy/polyp removed/benign. Past Anesthesia/Blood Transfusion Reactions: No Reported Reaction Additional Past Anesthesia/Blood Transfusion Reaction / Comment(s): Pt has never had general anesthesia. Smoking Status: Current every day smoker - Past Family History Father Additional Family Medical History / Comment(s): "Bad back" Mother Family Medical History: Cancer Son(s) Family Medical History: Deep Vein Thrombosis (DVT) Medications and Allergies Home Medications Medication Instructions Recorded Confirmed Type Ergocalciferol [Vitamin D2 (1250 1,250 mcg PO ZEE 08/22/21 01/06/22 History Mcg = 78629 Iu)] Apixaban [Eliquis] 5 mg PO BID 01/05/22 01/05/22 History Allergies Allergy/AdvReac Type Severity Reaction Status Date / Time No Known Allergies Allergy Verified 01/06/22 08:48 Surgical - Exam Vital Signs Temp Pulse Resp BP Pulse Ox 96.7 F L 85 17 165/91 98 01/06/22 08:49 01/06/22 08:49 01/06/22 08:49 01/06/22 08:49 01/06/22 08:49 - General well developed, well nourished, no distress - Eyes PERRL - ENT normal pinna - Neck no masses - Respiratory normal expansion - Cardiovascular Rhythm: regular - Abdomen Abdomen: soft, non tender Assessment and Plan Assessment: We will perform screening colonoscopy
--- NOTE | 2022-01-06 10:05 | P.OP ---
Date of Procedure: 01/06/22 Preoperative Diagnosis: Screening colonoscopy Postoperative Diagnosis: Left colon polyp Procedure(s) Performed: Colonoscopy Anesthesia: MAC Surgeon: Reuben Nichols Pathology: other (Left colon polyp) Condition: stable Disposition: PACU Description of Procedure: The patient's placed on the endoscopy table in the lateral position. He received IV sedation. Digital rectal exam was performed. This revealed no abnormalities. The prostate was symmetric without nodules. The flexible colonoscope was then placed patient anus and passed throughout the entire colon. The ileocecal valve was visualized. The cecum appeared normal. The ascending colon appeared normal. The transverse colon appeared normal. In the descending colon on the left side there was a small sessile polyp was removed with the snare. There was some scattered diverticuli seen in the descending and sigmoid colon. Scope was then brought back the rectum and this appeared normal. Scope withdrawn for patient.
[2022-01-06 10:08] VITALS: RESP 16
[2022-01-06 10:33] VITALS: BP 118/72; PULSE 83
== END 2022-01-06 11:05 | disposition home or self-care (01) ==
LOC: ORWHC2ENDO 08:28
PROVIDERS: ATTEND Surgery
DX: Z12.11 Encounter for screening for malignant neoplasm of colon (principal); D12.4 Benign neoplasm of descending colon; K57.30 Diverticulosis of large intestine without perforation or abscess without bleeding; Z86.010 Personal history of colon polyps; J44.9 Chronic obstructive pulmonary disease, unspecified; K21.9 Gastro-esophageal reflux disease without esophagitis; F17.200 Nicotine dependence, unspecified, uncomplicated; I25.2 Old myocardial infarction; Z86.711 Personal history of pulmonary embolism; Z80.9 Family history of malignant neoplasm, unspecified; Z82.49 Family history of ischemic heart disease and other diseases of the circulatory system; Z79.899 Other long term (current) drug therapy; Z79.01 Long term (current) use of anticoagulants
CPT/HCPCS: 88305; 45385; J2704

== ENCOUNTER 2022-03-09 17:16 | Emergency (ER) | payer MEDICARE ==
[2022-03-09 17:22] VITALS: RESP 18; TEMP 98.6
[2022-03-09] MEDS ORDERED: SODIUM CHLORIDE 0.9% 1,000 ML IV STA (17:35)
--- NOTE | 2022-03-09 17:44 | ED ---
General Adult HPI - General Chief complaint: Syncope Stated complaint: Fall Time Seen by Provider: 03/09/22 17:16 Source: patient, EMS, RN notes reviewed Mode of arrival: EMS - History of Present Illness Initial comments: This is a 71-year-old male who presents emergency department after having passed out. Patient states last few days he has not been feeling well she's been na useated been having diarrhea. Patient states today he went to a bar and drank a little bit of a beer and then went outside for a smoke and started feeling hot and then according to his friend he passed out. Patient was only out for a few seconds but later they had him sitting up and he started getting lightheaded again until they laid him down. Patient denies any headache patient denies numbness or weakness. Patient denies any chest pain palpitations difficulty breathing shortness of breath per patient denies any abdominal pain but he still feels mildly nauseated. Patient denies any recent fever chills or cough. Patient denies dysuria hematuria urinary frequency patient denies traumatic injury. Patient states he did bump the right side of his head when he fell but he does not have a headache. Patient does not have any areas of bleeding. Patient is on Xarelto for previous pulmonary embolism. - Related Data Home Medications Medication Instructions Recorded Confirmed Ergocalciferol [Vitamin D2 (1250 1,250 mcg PO ZEE 08/22/21 03/09/22 Mcg = 64309 Iu)] Apixaban [Eliquis] 5 mg PO BID 01/05/22 03/09/22 Allergies Allergy/AdvReac Type Severity Reaction Status Date / Time No Known Allergies Allergy Verified 03/09/22 18:20 Review of Systems ROS Statement: Those systems with pertinent positive or pertinent negative responses have been documented in the HPI. ROS Other: All systems not noted in ROS Statement are negative. Past Medical History Past Medical History: Blood Disorder, COPD, Eye Disorder, GERD/Reflux, Myocardial Infarction ([place]), Pneumonia, Pulmonary Embolus (PE) Additional Past Medical History / Comment(s): R eye glaucoma, occasional low back pain. 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 colon polyps Last Myocardial Infarction Date:: 2004 History of Any Multi-Drug Resistant Organisms: None Reported Past Surgical History: Heart Catheterization Additional Past Surgical History / Comment(s): 2004 cardiac cath/pt does not believe he had any intervention, colonoscopy/polyp removed/benign. Past Anesthesia/Blood Transfusion Reactions: No Reported Reaction Additional Past Anesthesia/Blood Transfusion Reaction / Comment(s): Pt has never had general anesthesia. Past Psychological History: No Psychological Hx Reported Smoking Status: Current every day smoker Past Alcohol Use History: Occasional Past Drug Use History: None Reported - Past Family History Father Additional Family Medical History / Comment(s): "Bad back" Mother Family Medical History: Cancer Son(s) Family Medical History: Deep Vein Thrombosis (DVT) General Exam - General Exam Comments Initial Comments: GENERAL: Patient is well-developed and well-nourished. Patient is nontoxic and well- hydrated and is in mild distress. ENT: Neck is soft and supple. No significant lymphadenopathy is noted. Oropharynx is clear. Moist mucous membranes. Neck has full range of motion without eliciting any pain. EYES: The sclera were anicteric and conjunctiva were pink and moist. Extraocular movements were intact and pupils were equal round and reactive to light. Eyelids were unremarkable. PULMONARY: Unlabored respirations. Good breath sounds bilaterally. No audible rales rhonchi or wheezing was noted. CARDIOVASCULAR: There is a regular rate and rhythm without any murmurs gallops or rubs. ABDOMEN: Soft and nontender with normal bowel sounds. SKIN: Skin is clear with no lesions or rashes and otherwise unremarkable. NEUROLOGIC: Patient is alert and oriented x3. Cranial nerves II through XII are grossly intact. Motor and sensory are also intact. Normal speech, volume and content. Symmetrical smile. MUSCULOSKELETAL: Normal extremities with adequate strength and full range of motion. No lower extremity swelling or edema. No calf tenderness. LYMPHATICS: No significant lymphadenopathy is noted PSYCHIATRIC: Normal psychiatric evaluation. Course Vital Signs 03/09/22 03/09/22 17:17 18:48 Temperature 98.6 F Pulse Rate 89 80 Respiratory 18 18 Rate Blood Pressure 138/79 142/89 O2 Sat by Pulse 98 99 Oximetry Medical Decision Making - Medical Decision Making EKG shows sinus rhythm at 83 bpm W[place] interval 236 QRS is 96 QT interval 355 QTC is 395. Patient's EKG shows no ST segment elevation or depression. CT brain and C-spine showed no acute abnormality. I removed the c-collar. CT angiogram for PE showed no pulmonary lives in no acute lung pathology. Patient was feeling back to his baseline and patient wanted be discharged home. - Lab Data Result diagrams: 03/09/22 17:41 03/09/22 17:41 Lab Results 03/09/22 03/09/22 03/09/22 Range/Units 17:41 17:41 17:41 WBC 3.5 L (3.8-10.6) k/uL RBC 3.98 L (4.30-5.90) m/uL Hgb 12.5 L (13.0-17.5) gm/dL Hct 37.0 L (39.0-53.0) % MCV 93.0 (80.0-100.0) fL MCH 31.4 (25.0-35.0) pg MCHC 33.8 (31.0-37.0) g/dL RDW 13.0 (11.5-15.5) % Plt Count 133 L (150-450) k/uL MPV 8.9 Neutrophils % 68 % Lymphocytes % 19 % Monocytes % 8 % Eosinophils % 1 % Basophils % 2 % Neutrophils # 2.4 (1.3-7.7) k/uL Lymphocytes # 0.7 L (1.0-4.8) k/uL Monocytes # 0.3 (0-1.0) k/uL Eosinophils # 0.0 (0-0.7) k/uL Basophils # 0.1 (0-0.2) k/uL PT 11.2 (9.0-12.0) sec INR 1.0 (<1.2) APTT 28.5 (22.0-30.0) sec Sodium (137-145) mmol/L Potassium (3.5-5.1) mmol/L Chloride (98-107) mmol/L Carbon Dioxide (22-30) mmol/L Anion Gap mmol/L BUN (9-20) mg/dL Creatinine (0.66-1.25) mg/dL Est GFR (CKD-EPI)AfAm (>60 ml/min/1.73 sqM) Est GFR (CKD-EPI)NonAf (>60 ml/min/1.73 sqM) Glucose (74-99) mg/dL Calcium (8.4-10.2) mg/dL Magnesium (1.6-2.3) mg/dL Total Bilirubin (0.2-1.3) mg/dL AST (17-59) U/L ALT (4-49) U/L Alkaline Phosphatase (38-126) U/L Troponin I (0.000-0.034) ng/mL Total Protein (6.3-8.2) g/dL Albumin (3.5-5.0) g/dL Coronavirus (PCR) Detected A (Not Detectd) 03/09/22 03/09/22 Range/Units 17:41 17:41 WBC (3.8-10.6) k/uL RBC (4.30-5.90) m/uL Hgb (13.0-17.5) gm/dL Hct (39.0-53.0) % MCV (80.0-100.0) fL MCH (25.0-35.0) pg MCHC (31.0-37.0) g/dL RDW (11.5-15.5) % Plt Count (150-450) k/uL MPV Neutrophils % % Lymphocytes % % Monocytes % % Eosinophils % % Basophils % % Neutrophils # (1.3-7.7) k/uL Lymphocytes # (1.0-4.8) k/uL Monocytes # (0-1.0) k/uL Eosinophils # (0-0.7) k/uL Basophils # (0-0.2) k/uL PT (9.0-12.0) sec INR (<1.2) APTT (22.0-30.0) sec Sodium 131 L (137-145) mmol/L Potassium 3.6 (3.5-5.1) mmol/L Chloride 96 L (98-107) mmol/L Carbon Dioxide 26 (22-30) mmol/L Anion Gap 9 mmol/L BUN 18 (9-20) mg/dL Creatinine 1.24 (0.66-1.25) mg/dL Est GFR (CKD-EPI)AfAm 68 (>60 ml/min/1.73 sqM) Est GFR (CKD-EPI)NonAf 59 (>60 ml/min/1.73 sqM) Glucose 87 (74-99) mg/dL Calcium 8.3 L (8.4-10.2) mg/dL Magnesium 1.7 (1.6-2.3) mg/dL Total Bilirubin 0.5 (0.2-1.3) mg/dL AST 32 (17-59) U/L ALT 19 (4-49) U/L Alkaline Phosphatase 39 (38-126) U/L Troponin I <0.012 (0.000-0.034) ng/mL Total Protein 6.3 (6.3-8.2) g/dL Albumin 4.0 (3.5-5.0) g/dL Coronavirus (PCR) (Not Detectd) Disposition Clinical Impression: COVID-19 Disposition: HOME SELF-CARE Condition: Good Instructions (If sedation given, give patient instructions): Coronavirus Disease 2019 (COVID-19) Is patient prescribed a controlled substance at d/c from ED?: No Referrals: None,Stated [Primary Care Provider] - 1-2 days Time of Disposition: 20:31
[2022-03-09 17:59] LABS: Calcium 8.3 mg/dL (8.4-10.2); Magnesium 1.7 mg/dL (1.6-2.3); Potassium 3.6 mmol/L (3.5-5.1); Total Bilirubin 0.5 mg/dL (0.2-1.3); Total Protein 6.3 g/dL (6.3-8.2)
[2022-03-09 18:00] LABS: Partial Thromboplastin Time 28.5 sec (22.0-30.0); Prothrombin Time 11.2 sec (9.0-12.0)
[2022-03-09 18:02] LABS: Basophils # (A) 0.1 k/uL (0-0.2); Basophils % (A) 2 %; Eosinophils % (A) 1 %; HGB 12.5 gm/dL (13.0-17.5); Lymphocytes # (A) 0.7 k/uL (1.0-4.8); Lymphocytes % (A) 19 %; MCH 31.4 pg (25.0-35.0); MCHC 33.8 g/dL (31.0-37.0); Mean Platelet Volume 8.9; Monocytes # (A) 0.3 k/uL (0-1.0); Monocytes % (A) 8 %; Neutrophils # (A) 2.4 k/uL (1.3-7.7); Neutrophils % (A) 68 %; Platelet Count 133 k/uL (150-450); RBC 3.98 m/uL (4.30-5.90); WBC 3.5 k/uL (3.8-10.6)
--- NOTE | 2022-03-09 18:37 | CT ---
EXAMINATION TYPE: CT brain cspine wo con CT DLP: 1370.6 mGycm, Automated exposure control for dose reduction was used. DATE OF EXAM: 03/09/2022 5:51 PM COMPARISON: CLINICAL INDICATION:Male, 71 years old with history of Trauma; pain after syncope/fall episode TECHNIQUE: Brain: Multiple axial CT images of the brain were obtained without IV contrast. Cspine: Axial CT images from the skull base to the inferior aspect of T2 we obtained without intraven ous contrast. Coronal and sagittal reformatted images were also reviewed. FINDINGS: Brain: Extra-axial spaces: No abnormal extra-axial fluid collections. Ventricular system: Within normal limits Cerebral parenchyma: Hypodense injuries remote lacunar injuries are seen bilaterally bilateral caudat e nuclei in the right basal ganglia. No acute intraparenchymal hemorrhage or mass effect. The peterson-w satish junction is well differentiated. Cerebellum: Unremarkable. Mass effect: No evidence of midline shift. Intracranial vasculature: Atherosclerotic calcifications of the intracranial vessels. Soft tissues: Normal. Calvarium/osseous structures: No depressed skull fracture. Paranasal sinuses and mastoid air cells: Clear. Visualized orbits: Orbital contents are intact. Cervical spine: Fracture: None. Osseous structures: Multilevel degenerative disc disease changes with endplate spurring and disc oste ophyte complex's. Vertebral alignment: Within normal limits. Spinal canal/Neural Foramina: Disc osteophyte complexes at C5-C6 with at least mild spinal canal sten osis. No evidence for significant neural foraminal stenosis. Neck soft tissues: Prevertebral soft tissues are within normal limits. Other: The airway is patent. Centrilobular emphysema changes with apical scarring and some mild bronc hiectasis noted. Atherosclerosis of the arterial vasculature IMPRESSION: 1. No acute intracranial process. 2. Remote lacunar injuries along with nonspecific white matter changes likely secondary to chronic m icroangiopathy. 3. No evidence of cervical spine fracture. 4. Mild multilevel degenerative disc disease.
--- NOTE | 2022-03-09 20:21 | CT ---
EXAMINATION TYPE: CT chest angio for PE CT DLP: 260.6 mGycm, Automated exposure control for dose reduction was used. DATE OF EXAM: 03/09/2022 7:49 PM COMPARISON: CT 08/22/2021. CLINICAL INDICATION:Male, 71 years old with history of Syncope; Syncope TECHNIQUE/CONTRAST: CTA scan of the thorax is performed with IV Contrast, patient injected with 80ml mL of Isovue 370, pu lmonary embolism protocol. MIP images are created and reviewed. FINDINGS: Pulmonary Artery: There is no evidence for a filling defect within the pulmonary vasculature to sugge st acute pulmonary embolism. The pulmonary artery is of normal size. Prior pulmonary embolus is no l onger visualized. Lungs/Pleura: No evidence of focal consolidation, pleural effusion or pneumothorax. Mild centrilobula r emphysema changes as well as paraseptal emphysema changes Airway: Large airways are patent. Heart: Heart is within normal limits for size.. Vasculature: No evidence of aortic aneurysm. Atherosclerosis of the arterial vasculature. Mediastinum: No gross evidence of adenopathy. Musculoskeletal: No acute osseous abnormalities Soft Tissues: Unremarkable. Lower neck: No significant findings. Upper Abdomen: No significant findings. IMPRESSION: 1. No evidence of pulmonary embolism. Resolution of prior pulmonary embolus seen on prior on 2. 2. Mild emphysema changes.
[2022-03-09 20:54] VITALS: BP 111/83; PULSE 86
== END 2022-03-09 20:54 | disposition home or self-care (01) ==
LOC: EC 17:16
DX: U07.1 COVID-19 (principal); J44.9 Chronic obstructive pulmonary disease, unspecified; I25.2 Old myocardial infarction; K21.9 Gastro-esophageal reflux disease without esophagitis; F17.200 Nicotine dependence, unspecified, uncomplicated; Z86.711 Personal history of pulmonary embolism; Z79.01 Long term (current) use of anticoagulants
CPT/HCPCS: 36415; 93005; 80053; 83735; 84484; 85025; 85610; 85730; 87635; 72125; 70450; 71275; 99285; 96360; Q9967

== ENCOUNTER 2024-03-03 14:37 | Emergency (ER) | payer MEDICARE ==
--- NOTE | 2024-03-03 14:49 | ED ---
Extremity Problem HPI - General Source: patient, RN notes reviewed Mode of arrival: ambulatory Limitations: no limitations <Nelia Ga - Last Filed: 03/03/24 16:33> <Elyssa Low - Last Filed: 03/03/24 18:47> - General Chief complaint: Extremity Problem,Nontraumatic Stated complaint: L leg swelling Time Seen by Provider: 03/03/24 14:49 - History of Present Illness Initial comments: 73-year-old male presented to the ER with a chief complaint of left lower extremity swelling. Patient states this been ongoing for the past 3 days. He does have factor V Leiden. Patient is prescribed Eliquis but has not been taking medications for approximately 3 to 4 weeks as he has been unable to afford medication. Patient denies any shortness of breath, chest pain, shortness of breath or palpitations. No injuries or traumas to extremity. (Nelia Ga) - Related Data Home Medications Medication Instructions Recorded Confirmed Ergocalciferol [Vitamin D2 (1250 1,250 mcg PO ZEE 08/22/21 03/09/22 Mcg = 07978 Iu)] Apixaban [Eliquis] 5 mg PO BID 01/05/22 03/09/22 Previous Rx's Medication Instructions Recorded Apixaban [Eliquis Starter Pack 0 mg PO DIRECTED 30 Days #1 03/03/24 (for VTE)] packet Allergies Allergy/AdvReac Type Severity Reaction Status Date / Time No Known Allergies Allergy Verified 03/03/24 14:40 Review of Systems ROS Other: All systems not noted in ROS Statement are negative. <Nelia Ga - Last Filed: 03/03/24 16:33> ROS Other: All systems not noted in ROS Statement are negative. <Elyssa Low - Last Filed: 03/03/24 18:47> ROS Statement: Those systems with pertinent positive or pertinent negative responses have been documented in the HPI. Past Medical History Past Medical History: Blood Disorder, COPD, Eye Disorder, GERD/Reflux, Myocardial Infarction (PR), Pneumonia, Pulmonary Embolus (PE) Additional Past Medical History / Comment(s): R eye glaucoma, occasional low back pain. 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 colon polyps Last Myocardial Infarction Date:: 2004 History of Any Multi-Drug Resistant Organisms: None Reported Past Surgical History: Heart Catheterization Additional Past Surgical History / Comment(s): 2004 cardiac cath/pt does not believe he had any intervention, colonoscopy/polyp removed/benign. Past Anesthesia/Blood Transfusion Reactions: No Reported Reaction Additional Past Anesthesia/Blood Transfusion Reaction / Comment(s): Pt has never had general anesthesia. Past Psychological History: No Psychological Hx Reported Smoking Status: Current every day smoker Past Alcohol Use History: Occasional Past Drug Use History: None Reported - Past Family History Father Additional Family Medical History / Comment(s): "Bad back" Mother Family Medical History: Cancer Son(s) Family Medical History: Deep Vein Thrombosis (DVT) <Nelia Ga - Last Filed: 03/03/24 16:33> General Exam Limitations: no limitations General appearance: alert, in no apparent distress Respiratory exam: Present: normal lung sounds bilaterally. Absent: respiratory distress, wheezes, rales, rhonchi, stridor Cardiovascular Exam: Present: normal rhythm, tachycardia, normal heart sounds Extremities exam: Present: calf tenderness (Left. Left lower extremity is mildly erythematous and warm to touch. 1+ dorsalis pedis pulse. Full range of motion.) Neurological exam: Present: alert, oriented X3, CN II-XII intact Skin exam: Present: warm, dry, intact, normal color. Absent: rash <Nelia Ga - Last Filed: 03/03/24 16:33> - General Exam Comments Initial Comments: Visual Physical Exam Vital signs reviewed General: Well-appearing, nontoxic, no acute distress. Head: Normocephalic, atraumatic Eyes: PERRLA, EOMI ENT: Airway patent Chest: Nonlabored breathing Skin: No visual rash, normal skin tone Neuro: Alert and oriented 3 Musculoskeletal: No gross abnormalities (Nelia Ga) Course Vital Signs 03/03/24 03/03/24 14:38 18:42 Temperature 97.8 F 97.9 F Pulse Rate 116 H 89 Respiratory 16 19 Rate Blood Pressure 153/88 154/87 O2 Sat by Pulse 99 97 Oximetry Medical Decision Making <Nelia Ga - Last Filed: 03/03/24 16:33> - Lab Data Result diagrams: 03/03/24 17:05 03/03/24 17:05 <Elyssa Low - Last Filed: 03/03/24 18:47> - Medical Decision Making I performed the quick note portion of this chart. Electronically signed by MARIA A [place]-C Was pt. sent in by a medical professional or institution (, MARIA A, EXTRUSION LINE OPERATOR, urgent care, hospital, or care home...) When possible be specific @ -No Did you speak to anyone other than the patient for history (EMS, parent, family, police, friend...)? What history was obtained from this source @ -Son, at bedside, aiding in HPI and past medical history. Did you review nursing and triage notes (agree or disagree)? Why? @ -I reviewed and agree with nursing and triage notes Were old charts reviewed (outside hosp., previous admission, EMS record, old EKG, old radiological studies, urgent care reports/EKG's, care home records)? Report findings @ -No old charts were reviewed Differential Diagnosis (chest pain, altered mental status, abdominal pain women, abdominal pain men, vaginal bleeding, weakness, fever, dyspnea, syncope, headache, dizziness, GI bleed, back pain, seizure, CVA, palpatations, mental health, musculoskeletal)? @ -Differential Musculoskeletal: Muscular strain, contusion, ligament sprain, fracture, arthritis, septic arthritis, bursitis, cellulitis, muscle spasm, nerve compression, DVT, arterial occlusion, herpes zoster, electrolyte abnormality, tumor.... This is not meant to be in all inclusive list EKG interpreted by me (3pts min.). @ -Pending X-rays interpreted by me (1pt min.). @ -None done CT interpreted by me (1pt min.). @ -Pending U/S interpreted by me (1pt. min.). @ -Pending What testing was considered but not performed or refused? (CT, X-rays, U/S, labs)? Why? @ -None What meds were considered but not given or refused? Why? @ -None Did you discuss the management of the patient with other professionals (professionals i.e. MARIA A Jackson, EXTRUSION LINE OPERATOR, lab, RT, psych nurse, social media marketing specialist, access tech, teacher, airframe technical officer, manager rn case)? Give summary @ -No Was smoking cessation discussed for >3mins.? @ -No Was critical care preformed (if so, how long)? @ -No Were there social determinants of health that impacted care today? How? (Homelessness, low income, unemployed, alcoholism, drug addiction, transportation, low edu. Level, literacy, decrease access to med. care, senior care, rehab)? @ -Yes, patient is unable to afford Eliquis and has been unable to refill prescription for the past 3 to 4 weeks. Was there de-escalation of care discussed even if they declined (Discuss DNR or withdrawal of care, Hospice)? DNR status @ -No What co-morbidities impacted this encounter? (DM, HTN, Smoking, COPD, CAD, Cancer, CVA, ARF, Chemo, Hep., AIDS, mental health diagnosis, sleep apnea, morbid obesity)? @ -Factor V Leiden Was patient admitted / discharged? Hospital course, mention meds given and route, prescriptions, significant lab abnormalities, going to OR and other p ertinent info. @ -73-year-old male presented to ER with a chief complaint of left lower extremity pain and swelling. Patient has a past medical history significant of factor V Leiden. History and physical exam completed. Vitals upon arrival remarkable for temperature 97.8 heart rate 116, RR16, blood pressure 153/88, oxygen saturation 99% on room air. Patient in no signs of acute distress. Exam remarkable for a mildly erythematous and warm to touch left calf. Positive calf tenderness. Due to tachycardia and patient without blood thinning medication for approximately 3 to 4 weeks ultrasound and CTA chest will be obtained to rule out DVT and/or PE. Patient is agreeable for this. Patient signed out to Elyssa Low pending results and disposition. (Nelia Ga) Duplex venous ultrasound of the left lower extremity reveals a subocclusive thrombus in the left mid and distal femoral vein at the medial vein PTV's and peroneal veins described. CBC, CMP, and coagulation profile within normal limits. EKG was completed at 1729 sinus rhythm with a ventricular rate of 76, VT interval 183, QRS 89, QTc 397. No acute signs of ischemia. CTA of the chest reveals no evidence of pulmonary embolism with stable pulmonary nodules dating back to at least 2021 with mild emphysema. Patient is provided with 10 mg dose of Eliquis emergency department and is provided with Eliquis 30- day trial and sent a prescription to [facility]. Recommend that he follow-up with his primary care provider within the next 1 to 2 days for further evaluation as well. All questions answered at bedside strict return prior discussed with the patient and he is verbalized understanding. Case discussed with Dr. Barrios ([facility]) - Lab Data Lab Results 03/03/24 03/03/24 03/03/24 Range/Units 17:05 17:05 17:05 WBC 8.8 (3.8-10.6) k/uL RBC 4.33 (4.30-5.90) m/uL Hgb 13.6 (13.0-17.5) gm/dL Hct 41.6 (39.0-53.0) % MCV 96.0 (80.0-100.0) fL MCH 31.4 (25.0-35.0) pg MCHC 32.7 (31.0-37.0) g/dL RDW 13.2 (11.5-15.5) % Plt Count 239 (150-450) k/uL MPV 7.9 Neutrophils % 72 % Lymphocytes % 17 % Monocytes % 6 % Eosinophils % 3 % Basophils % 1 % Neutrophils # 6.3 (1.3-7.7) k/uL Lymphocytes # 1.5 (1.0-4.8) k/uL Monocytes # 0.5 (0-1.0) k/uL Eosinophils # 0.2 (0-0.7) k/uL Basophils # 0.1 (0-0.2) k/uL PT 10.5 (10.0-12.5) sec INR 0.9 (<1.2) APTT 21.8 L (22.0-30.0) sec Sodium 139 (137-145) mmol/L Potassium 4.3 (3.5-5.1) mmol/L Chloride 104 (98-107) mmol/L Carbon Dioxide 27 (22-30) mmol/L Anion Gap 8 mmol/L BUN 8 L (9-20) mg/dL Creatinine 0.76 (0.66-1.25) mg/dL Est GFR (CKD-EPI)AfAm >90 (>60 ml/min/1.73 sqM) Est GFR (CKD-EPI)NonAf >90 (>60 ml/min/1.73 sqM) Glucose 94 (74-99) mg/dL Calcium 9.6 (8.4-10.2) mg/dL Total Bilirubin 1.6 H (0.2-1.3) mg/dL AST 22 (17-59) U/L ALT 19 (4-49) U/L Alkaline Phosphatase 62 (38-126) U/L Total Protein 7.2 (6.3-8.2) g/dL Albumin 4.5 (3.5-5.0) g/dL Disposition <Nelia Ga - Last Filed: 03/03/24 16:33> Is patient prescribed a controlled substance at d/c from ED?: No Time of Disposition: 18:23 <Elyssa Low - Last Filed: 03/03/24 18:47> Clinical Impression: Deep vein thrombosis (DVT) of lower extremity Disposition: HOME SELF-CARE Condition: Good Instructions (If sedation given, give patient instructions): Apixaban (By mouth), Deep Vein Thrombosis (ED) Additional Instructions: Return to the emergency department for any new or worsening symptoms. Recommend you continue anticoagulation as prescribed. follow-Up with your primary care provider within the next week for further evaluation. Prescriptions: Apixaban [Eliquis Starter Pack (for VTE)] 0 mg PO DIRECTED 30 Days #1 packet Referrals: Jessica Silva MD [Primary Care Provider] - 1-2 days
--- NOTE | 2024-03-03 17:13 | US ---
EXAMINATION TYPE: US venous doppler duplex LE LT DATE OF EXAM: 03/03/2024 3:13 PM COMPARISON: 2021 CLINICAL INDICATION: Male, 73 years old with history of swelling hx factor V; LLE swelling/pain. 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 Pt states normally takes blood thinners but hasn't for the past 3-4 weeks SIDE PERFORMED: Left TECHNIQUE: The lower extremity deep venous system is examined utilizing real time linear array sonog anny with graded compression, doppler sonography and color-flow sonography. VESSELS IMAGED: Common Femoral Vein Deep Femoral Vein Greater Saphenous Vein * Femoral Vein Popliteal Vein Small Saphenous Vein * Proximal Calf Veins (* superficial vessels) Left Leg: Sub-occlusive thrombus noted mid and distal femoral vein, popliteal vein, PTVs and peronea l veins. Contralateral right CFV/GSV imaged - no evidence of thrombus IMPRESSION: Sub-occlusive thrombus LEFT mid and distal femoral vein, popliteal vein, PTVs and peroneal veins. [facility], , 03/03/2024 5:11 PM
[2024-03-03 17:21] LABS: Basophils # (A) 0.1 k/uL (0-0.2); Basophils % (A) 1 %; Eosinophils # (A) 0.2 k/uL (0-0.7); Eosinophils % (A) 3 %; HCT 41.6 % (39.0-53.0); HGB 13.6 gm/dL (13.0-17.5); Lymphocytes # (A) 1.5 k/uL (1.0-4.8); Lymphocytes % (A) 17 %; MCH 31.4 pg (25.0-35.0); MCHC 32.7 g/dL (31.0-37.0); Mean Platelet Volume 7.9; Monocytes # (A) 0.5 k/uL (0-1.0); Monocytes % (A) 6 %; Neutrophils # (A) 6.3 k/uL (1.3-7.7); Neutrophils % (A) 72 %; Platelet Count 239 k/uL (150-450); RBC 4.33 m/uL (4.30-5.90); RDW 13.2 % (11.5-15.5); WBC 8.8 k/uL (3.8-10.6)
[2024-03-03 17:30] LABS: INR 0.9 (<1.2); Prothrombin Time 10.5 sec (10.0-12.5)
[2024-03-03 17:34] LABS: ALT 19 U/L (4-49); AST 22 U/L (17-59); African American GFR (CKD) >90 (>60 ml/min/1.73 sqM); Albumin 4.5 g/dL (3.5-5.0); Alkaline Phosphatase 62 U/L (38-126); Anion Gap 8 mmol/L; Blood Urea Nitrogen 8 mg/dL (9-20); Calcium 9.6 mg/dL (8.4-10.2); Carbon Dioxide 27 mmol/L (22-30); Chloride 104 mmol/L (98-107); Glucose 94 mg/dL (74-99); Non-African American GFR(CKD) >90 (>60 ml/min/1.73 sqM); Potassium 4.3 mmol/L (3.5-5.1); Sodium 139 mmol/L (137-145); Total Bilirubin 1.6 mg/dL (0.2-1.3); Total Protein 7.2 g/dL (6.3-8.2)
[2024-03-03 17:37] LABS: Partial Thromboplastin Time 21.8 sec (22.0-30.0)
--- NOTE | 2024-03-03 18:08 | CT ---
EXAMINATION TYPE: CT chest angio for PE CT DLP: 258.9 mGycm, Automated exposure control for dose reduction was used. DATE OF EXAM: 03/03/2024 5:59 PM COMPARISON: Chest radiograph from same day. 03/09/2022 CLINICAL INDICATION: Male, 73 years old with history of hx dvt no thinners3/4 weeks; leg swelling, hx of dvt TECHNIQUE/CONTRAST: CTA scan of the thorax is performed with IV Contrast, patient injected with 100ml mL of Isovue 370, M IP images are created and reviewed these are created on a separate workstation.. FINDINGS: Pulmonary Artery: There is no evidence for a filling defect within the pulmonary vasculature to sugge st acute pulmonary embolism. The pulmonary artery is of normal size. Lungs/Pleura: No evidence of focal consolidation, pleural effusion or pneumothorax. Left lower lobe p ulmonary nodules measuring up to 6 mm series 411 image 1 32 mm image 124 mild centrilobular emphysema changes right lower lobe similar 5 mm image 113 Airway: Scattered opacified large airways are oval secretions view aspect of the inferior right midd le lobe Heart: Heart is within normal limits for size. Vasculature: No evidence of aortic aneurysm. Mediastinum: No gross evidence of adenopathy. Musculoskeletal: No acute osseous abnormalities Soft Tissues/lymph nodes: Unremarkable. Lower neck: No significant findings. Upper Abdomen: No significant findings. IMPRESSION: 1. No evidence of pulmonary embolism. 2. Stable pulmonary nodules dating back to at least 2021 3. Mild emphysema. [facility], , 03/03/2024 6:05 PM
[2024-03-03] MEDS: APIXABAN 5 MG TAB PO STA ×2 (18:39→18:42)
[2024-03-03 18:57] VITALS: BP 154/87; PULSE 89; RESP 19; TEMP 97.9
[2024-03-03] MEDS ORDERED: APIXABAN 5 MG TAB PO SCH (21:00)
== END 2024-03-03 18:45 | disposition home or self-care (01) ==
LOC: EC 14:37
CPT/HCPCS: 36415; 71275; 80053; 85025; 85610; 85730; 93005; 99284

== ENCOUNTER → 2024-10-03 | Outpatient (CLI) | payer MEDICARE ==
[2024-10-03 14:43] LABS: African American GFR (CKD) >90 (>60 ml/min/1.73 sqM); Blood Urea Nitrogen 11 mg/dL (9-20); Non-African American GFR(CKD) 86 (>60 ml/min/1.73 sqM)
--- NOTE | 2024-10-03 15:38 | CT ---
CT chest with contrast. HISTORY: Productive cough for 3 weeks COMPARISON: CTA chest dated 03/03/2024 TECHNIQUE: Multiple axial images were obtained through the thorax following the uneventful administra tion of nonionic IV contrast material. FINDINGS: There is mild to moderate emphysematous changes upper lobe predominance. There is moderate pleural pa renchymal scarring in lung apices with mild bronchiectasis. There are stable bilateral pulmonary nodules largest of which is a stable 7.4 mm nodule in the left l ciera base laterally in the 5.7 mm nodule in the left posterior laterally. There are no new or suspicio us lung masses or nodules. There is no airspace consolidation. There is no pleural effusion, pleural thickening or pneumothorax. The great vessels the chest are normal. There is no mediastinal, hilar or axillary adenopathy. Limited scanning of the upper abdomen reveals no gross abnormality.. No focal osseous lesions are seen. IMPRESSION: 1. No acute cardiopulmonary disease. 2. Stable pleural parenchymal scarring in the lung apices. 3. Stable pulmonary nodules as described above. 4. stable mild to moderate emphysematous changes. [facility], , 10/03/2024 3:36 PM
== END | disposition home or self-care (01) ==
LOC: RADCTMAIN 14:10
PROVIDERS: ATTEND Internal Medicine
DX: J98.4 Other disorders of lung (principal); J43.9 Emphysema, unspecified; R91.8 Other nonspecific abnormal finding of lung field
CPT/HCPCS: 82565; 84520; 71260; 36415; Q9967